=== PATIENT | male | born 1955 | race Caucasian/White ===

== ENCOUNTER 2017-11-26 19:22 | Emergency (ER) | payer BC ==
[2017-11-26 19:36] VITALS: RESP 18
[2017-11-26 20:56] LABS: Appearance,Urine Clear (Clear); Basophils % (A) 0 %; Bilirubin,Urine Negative (Negative); Blood,Urine Negative (Negative); Color,Urine Yellow; Eosinophils % (A) 0 %; Glucose,Urine (UA) Negative (Negative); HCT 54.2 % (39.0-53.0); HGB 18.7 gm/dL (13.0-17.5); Ketones,Urine Negative (Negative); Leukocyte Esterase,Urine Negative (Negative); Lymphocytes # (A) 1.3 k/uL (1.0-4.8); Lymphocytes % (A) 18 %; MCHC 34.4 g/dL (31.0-37.0); Mean Platelet Volume 7.4; Monocytes # (A) 0.3 k/uL (0-1.0); Monocytes % (A) 4 %; Neutrophils # (A) 5.8 k/uL (1.3-7.7); Neutrophils % (A) 76 %; Nitrite,Urine Negative (Negative); PH, Urine 5.5 (5.0-8.0); Platelet Count 188 k/uL (150-450); Protein,Urine Negative (Negative); RBC 6.02 m/uL (4.30-5.90); RDW 12.6 % (11.5-15.5); Specific Gravity,Urine 1.017 (1.001-1.035); Urobilinogen,Urine <2.0 mg/dL (<2.0); WBC 7.6 k/uL (3.8-10.6)
[2017-11-26 21:06] LABS: Anion Gap 9 mmol/L; Blood Urea Nitrogen 14 mg/dL (9-20); Calcium 9.4 mg/dL (8.4-10.2); Carbon Dioxide 25 mmol/L (22-30); Chloride 107 mmol/L (98-107); Glucose 90 mg/dL (74-99); Potassium 4.3 mmol/L (3.5-5.1); Sodium 141 mmol/L (137-145)
--- NOTE | 2017-11-26 21:47 | ED ---
General Adult HPI - General Source: patient, RN notes reviewed Mode of arrival: ambulatory Limitations: no limitations <Júnior Woodruff P - Last Filed: 11/26/17 21:53> <Thao Dye P - Last Filed: 11/28/17 05:00> - General Chief complaint: Anxiety Stated complaint: anxiety Time Seen by Provider: 11/26/17 19:48 - History of Present Illness Initial comments: 61-year-old male presents to the emergency department for a chief complaint of anxiety regarding kidney function. Patient states that a few days ago he "had it in his head that his kidney function may be messed up." Patient states he is not sure what initiated this thought. He states he has had anxiety in the past. He states he has not slept the past few days because he is concerned about his kidneys. He states he has been drinking a lot of water to help his kidney function. Patient denies any history of kidney failure or disease. He states his mother of kidney failure after she had cancer. He states that the only thing that will ease his anxiety is to have his kidney function tested here in the emergency department.Patient has no other complaints at this time including shortness of breath, chest pain, abdominal pain, nausea or vomiting, headache, or visual changes. (Júnior Woodruff) - Related Data Allergies Allergy/AdvReac Type Severity Reaction Status Date / Time No Known Allergies Allergy Verified 11/26/17 19:36 Review of Systems ROS Other: All systems not noted in ROS Statement are negative. <Júnior Woodruff - Last Filed: 11/26/17 21:53> ROS Other: All systems not noted in ROS Statement are negative. <Thao Dey P - Last Filed: 11/28/17 05:00> ROS Statement: Those systems with pertinent positive or pertinent negative responses have been documented in the HPI. Past Medical History Past Medical History: Hypertension History of Any Multi-Drug Resistant Organisms: None Reported Past Surgical History: Tonsillectomy Past Psychological History: Anxiety Smoking Status: Never smoker Past Alcohol Use History: Occasional Past Drug Use History: None Reported <Júnior Woodruff - Last Filed: 11/26/17 21:53> General Exam Limitations: no limitations General appearance: alert, in no apparent distress Head exam: Present: atraumatic, normocephalic, normal inspection Eye exam: Present: normal appearance. Absent: scleral icterus, conjunctival injection ENT exam: Present: normal exam, mucous membranes moist Neck exam: Present: normal inspection, full ROM. Absent: tenderness, meningismus, lymphadenopathy Respiratory exam: Present: normal lung sounds bilaterally. Absent: respiratory distress, wheezes, rales, rhonchi, stridor Cardiovascular Exam: Present: regular rate, normal rhythm, normal heart sounds. Absent: systolic murmur, diastolic murmur, rubs, gallop, clicks GI/Abdominal exam: Present: soft, normal bowel sounds. Absent: distended, tenderness, guarding, rebound, rigid Back exam: Absent: CVA tenderness (R), CVA tenderness (L) Neurological exam: Present: alert, oriented X3, CN II-XII intact Psychiatric exam: Present: normal affect, normal mood <Júnior Woodruff P - Last Filed: 11/26/17 21:53> Vital Signs 11/26/17 11/26/17 19:34 22:14 Temperature 97.6 F 98.1 F Pulse Rate 86 78 Respiratory 18 18 Rate Blood Pressure 156/86 143/86 O2 Sat by Pulse 99 92 L Oximetry Medical Decision Making - Lab Data Result diagrams: 11/26/17 20:46 11/26/17 20:46 <Júnior Woodruff P - Last Filed: 11/26/17 21:53> - Lab Data Result diagrams: 11/26/17 20:46 11/26/17 20:46 <Thao Dey P - Last Filed: 11/28/17 05:00> - Medical Decision Making 61-year-old male presents to the emergency department for a chief complaint of anxiety over kidney function. Patient does not have a history of kidney disease or kidney failure. However he states he got in his head out of no where that his kidneys were not working properly and wanted a blood test to make sure they were okay. BMP was ordered and was unremarkable. Discussed results with patient and discussed that his kidneys do appear to be functioning. Patient states his anxiety is relieved significantly. He is very thankful for the test today. He will follow up with primary care in 1-2 days. He will return to the emergency department if he has any additional concerns. ( Júnior Woodruff) I was available for consultation in the emergency department. The history and physical exam were done by the midlevel provider. I was consulted for this patient's care. I reviewed the case with the midlevel provider and based on their presentation of the patient, I agree with the assessment, medical decision making and plan of care as documented. (Thao Dey) - Lab Data Lab Results 11/26/17 11/26/17 11/26/17 Range/Units 20:46 20:46 20:46 WBC 7.6 (3.8-10.6) k/uL RBC 6.02 H (4.30-5.90) m/uL Hgb 18.7 H (13.0-17.5) gm/dL Hct 54.2 H (39.0-53.0) % MCV 90.0 (80.0-100.0) fL MCH 31.0 (25.0-35.0) pg MCHC 34.4 (31.0-37.0) g/dL RDW 12.6 (11.5-15.5) % Plt Count 188 (150-450) k/uL Neutrophils % 76 % Lymphocytes % 18 % Monocytes % 4 % Eosinophils % 0 % Basophils % 0 % Neutrophils # 5.8 (1.3-7.7) k/uL Lymphocytes # 1.3 (1.0-4.8) k/uL Monocytes # 0.3 (0-1.0) k/uL Eosinophils # 0.0 (0-0.7) k/uL Basophils # 0.0 (0-0.2) k/uL Sodium 141 (137-145) mmol/L Potassium 4.3 (3.5-5.1) mmol/L Chloride 107 (98-107) mmol/L Carbon Dioxide 25 (22-30) mmol/L Anion Gap 9 mmol/L BUN 14 (9-20) mg/dL Creatinine 0.81 (0.66-1.25) mg/dL Est GFR (CKD-EPI)AfAm >90 (>60 ml/min/1.73 sqM) Est GFR (CKD-EPI)NonAf >90 (>60 ml/min/1.73 sqM) Glucose 90 (74-99) mg/dL Calcium 9.4 (8.4-10.2) mg/dL Urine Color Yellow Urine Appearance Clear (Clear) Urine pH 5.5 (5.0-8.0) Ur Specific Carriere 1.017 (1.001-1.035) Urine Protein Negative (Negative) Urine Glucose (UA) Negative (Negative) Urine Ketones Negative (Negative) Urine Blood Negative (Negative) Urine Nitrite Negative (Negative) Urine Bilirubin Negative (Negative) Urine Urobilinogen <2.0 (<2.0) mg/dL Ur Leukocyte Esterase Negative (Negative) Disposition Is patient prescribed a controlled substance at d/c from ED?: No Time of Disposition: 21:47 <Júnior Woodruff P - Last Filed: 11/26/17 21:53> <Thao Dey P - Last Filed: 11/28/17 05:00> Clinical Impression: Normal exam Disposition: HOME SELF-CARE Condition: Good Instructions: Generalized Anxiety Disorder (ED) Additional Instructions: Please follow up with primary care in 1-2 days. Return to the emergency department if you have any worsening symptoms or additional concerns. Referrals: Jalil Miller MD [Primary Care Provider] - 1-2 days
[2017-11-26 22:15] VITALS: BP 143/86; PULSE 78; TEMP 98.1
== END 2017-11-26 22:17 | disposition home or self-care (01) ==
LOC: EC 19:22
DX: F41.9 Anxiety disorder, unspecified (principal)
CPT/HCPCS: 36415; 80048; 81003; 85025; 99283

== ENCOUNTER 2019-10-24 10:14 | Day surgery (SDC) | payer BC ==
[2019-10-20 11:28] VITALS: BMI 28.3
[~2019-10-24 10:14] MED LIST: LACTATED RINGERS 1,000 ML IV SCH; SODIUM CHLORIDE 0.9% 1,000 ML IV SCH
[2019-10-24] MEDS ORDERED: PROPOFOL 10 MG/ML 20 ML VIAL IV ONE (11:16)
[2019-10-24] MEDS ORDERED: LIDOCAINE 1% INJ 10MG/ML (20 ML MDV) ONE (11:16)
[2019-10-24 11:17] LABS: African American GFR (CKD) >90 (>60 ml/min/1.73 sqM); Anion Gap 7 mmol/L; Blood Urea Nitrogen 15 mg/dL (9-20); Carbon Dioxide 26 mmol/L (22-30); Chloride 106 mmol/L (98-107); Glucose 92 mg/dL (74-99); Non-African American GFR(CKD) >90 (>60 ml/min/1.73 sqM); Potassium 4.4 mmol/L (3.5-5.1); Sodium 139 mmol/L (137-145)
[2019-10-24] MEDS ORDERED: BENZOCAINE SPRAY 1 CAN TOPICAL ONE (11:23)
[2019-10-24] MEDS ORDERED: IV FLUID CONTINUATION 500 ML IV ONE (11:33)
[2019-10-24 11:45] VITALS: TEMP 97.8
[2019-10-24 12:24] VITALS: RESP 14
--- NOTE | 2019-10-24 13:10 | ECHOT ---
TRANSESOPHAGEAL ECHOCARDIOGRAM PERFORMING PHYSICIAN: Dr. Danny Olsen PROCEDURE PERFORMED: Transesophageal echocardiogram. INDICATIONS: Atypical atrial flutter. COMPLICATIONS: LEVEL OF SEDATION: PROCEDURE DESCRIPTION: After obtaining informed consent, transesophageal echocardiogram was performed in left lateral position using an Omniplane probe. Local and IV sedation were obtained by the jewel staker. The patient tolerated the procedure well without any obvious immediate complications. FINDINGS: 1. There is no intracardiac thrombus within the left atrial appendage, left atrium, right atrium, right ventricle or left ventricle. 2. Left ventricle has normal size and systolic function. 3. There is biatrial enlargement. 4. Mitral valve shows mild mitral regurgitation. 5. Aortic valve is free of stenosis or regurgitation. 6. Tricuspid valve shows mild tricuspid regurgitation. 7. Interatrial septum: There is no evidence of bjat-dm-fhywl shunt by color-flow Doppler or [id number] shunt by agitated saline contrast study. Aorta shows mild atherosclerotic changes. The ascending aorta at the sinuses of Valsalva measures 3.9 cm. CONCLUSION: No intracardiac thrombus. PLAN: Patient will undergo cardioversion. MMODL / IJN: [id number] /
[2019-10-24 13:11] VITALS: PULSE 60
--- NOTE | 2019-10-24 13:25 | PCN ---
PROCEDURE NOTE CARDIOVERSION: INDICATION: Atrial flutter. PROCEDURE NOTE: After obtaining informed consent and making sure that the patient is adequately anticoagulated with Eliquis and the REGAN has ruled out intracardiac thrombus, patient underwent electrical cardioversion. He received 200 joules synchronized DC current following which he converted to sinus rhythm. He will continue the Eliquis and will be followed up in my office in a week's time. MMADIN / JAIMEEN: [id number] /
[2019-10-24 13:47] VITALS: BP 112/58
--- NOTE | 2019-10-26 10:30 | CDI ---
Outpatient Documentation Clarification Form Date: 10/26/19 CDS/Back Winder Name: Isa Roy Phone: If any questions, call Lexis Reed Housing Court Judge at [phone] Patient Name: Marvin Carter Admit Date: 10/24/19 Discharge Date: 10/24/19 ATTENTION: The [facility] Coding Staff appreciate your assistance in clarifying documentation. Please respond to the clarification below the line at the bottom and electronically sign. The [facility] Coding staff will review the response and follow-up if needed. Please note: Queries are made part of the Legal Health Record. If you have any questions, please contact the Housing Court Judge. Dear Dr. Olsen, Please provide clarification as to the procedure(s) performed. Charges indicate that all three elements of REGAN were performed. The procedure note does not document all three elements of the REGAN. There is no documentation on the for the Doppler echocard pulse waive w/spectral display or the dopppler echocard color flow velocity mapping. Please clarify if all elements of the REGAN were performed. Thank you for your kind consideration. MTDD
== END 2019-10-24 14:00 | disposition home or self-care (01) ==
LOC: CATHCVL 10:14
PROVIDERS: ATTEND Internal Medicine Cardiovascular Disease
DX: I48.4 Atypical atrial flutter (principal); I10 Essential (primary) hypertension; Z90.49 Acquired absence of other specified parts of digestive tract; Z98.890 Other specified postprocedural states; Z79.01 Long term (current) use of anticoagulants; Z79.899 Other long term (current) drug therapy
CPT/HCPCS: 93312; 93320; 93325; 92960; 80048; J2001; J2704; 93005

== ENCOUNTER → 2022-01-13 | Outpatient (CLI) | payer SELFPAY ==
--- NOTE | 2022-01-13 15:04 | US ---
EXAMINATION TYPE: US kidneys/renal and bladder DATE OF EXAM: 01/13/2022 COMPARISON: NONE CLINICAL HISTORY: R30.0 DYSURIA, R35.0 FREQUENCY OF MICTURITION. Pt states urinary frequency EXAM MEASUREMENTS: Right Kidney: 12.2 x 5.6 x 5.8 cm Left Kidney: 11.2 x 6.1 x 5.5 cm Right Kidney: Appeared wnl Left Kidney: Appeared wnl Bladder: wnl Bilateral Jets seen: Yes Normal Post Void Residual: No, 52 ml There is no evidence for hydronephrosis at this point in time. No nephrolithiasis is seen. No bailey s are identified. The urinary bladder is anechoic. Bilateral ureteral jets are seen. IMPRESSION: No acute process.
== END | disposition home or self-care (01) ==
LOC: RADUSMAIN 14:00
PROVIDERS: ATTEND Family Medicine
DX: R30.0 Dysuria (principal); R35.0 Frequency of micturition
CPT/HCPCS: 76770

== ENCOUNTER 2024-07-11 16:44 | Observation (INO) | payer MEDICARE, OTHER ==
--- NOTE | 2024-07-11 17:21 | ED ---
Recheck HPI - General Source: patient, RN notes reviewed Mode of arrival: ambulatory Limitations: no limitations - History of Present Illness MD Complaint: abnormal lab Onset/Timin -: days(s) Context: called for abnormal lab result Associated Symptoms: other (Improving nasal congestion, productive cough) <Tom Lowe - Last Filed: 07/11/24 23:42> <Edwardo Dempsey - Last Filed: 07/12/24 00:09> - General Chief Complaint: Recheck/Abnormal Lab/Rx Stated Complaint: Abnormal Labs Time Seen by Provider: 07/11/24 17:02 - History of Present Illness Initial Comments: This is a 68-year-old male with history of A-fib and hypertension presenting with abnormal lab work performed yesterday. Patient received his call from his primary care provider informing him of a platelet count of 9, advising him to go to ER. Patient denies history of low platelet count or any active bleeding noted from gums or in stool. Patient endorses use of Eliquis, metoprolol and Dupixent for bullous pemphigoid. Patient states he was getting treated for productive cough and congestion for the past 2 and half weeks, receiving an antibiotic and Medrol Dosepak, noting improvement in his symptoms. Denies fever, chills, dizziness, chest pain, dyspnea, hemoptysis, abdominal pain, N/V/D. (Tom Lowe) - Related Data Home Medications Medication Instructions Recorded Confirmed Metoprolol Succinate [Toprol XL] 50 mg PO DAILY 10/20/19 07/11/24 Amoxic-Pot Clav 875-125Mg 1 tab PO Q12HR 07/11/24 07/11/24 [Augmentin 875-125] Apixaban [Eliquis] 5 mg PO BID 07/11/24 07/11/24 Benzonatate [Tessalon Perles] 100 mg PO TID PRN 07/11/24 07/11/24 Cholecalciferol [Vitamin D3 (125 250 mcg PO DAILY 07/11/24 07/11/24 Mcg = 5000 Iu)] Dupilumab [Dupixent Syringe] 300 mg SQ Q14D 07/11/24 07/11/24 Tamsulosin [Flomax] 0.4 mg PO HS 07/11/24 07/11/24 amLODIPine [Norvasc] 10 mg PO DAILY 07/11/24 07/11/24 methylPREDNISolone [Medrol Dose See Taper PO DIRECTED 07/11/24 07/11/24 Pack] Allergies Allergy/AdvReac Type Severity Reaction Status Date / Time No Known Allergies Allergy Verified 07/11/24 18:10 Review of Systems ROS Other: All systems not noted in ROS Statement are negative. <Tom Lowe - Last Filed: 07/11/24 23:42> ROS Other: All systems not noted in ROS Statement are negative. <Edwardo Dempsey - Last Filed: 07/12/24 00:09> ROS Statement: Those systems with pertinent positive or pertinent negative responses have been documented in the HPI. Past Medical History Past Medical History: Atrial Fibrillation, Hypertension History of Any Multi-Drug Resistant Organisms: None Reported Past Surgical History: Cholecystectomy, Tonsillectomy Additional Past Surgical History / Comment(s): COLONOSCOPY Past Anesthesia/Blood Transfusion Reactions: No Reported Reaction Past Psychological History: Anxiety Smoking Status: Never smoker - Past Family History Mother Family Medical History: Cancer <Tom Lowe - Last Filed: 07/11/24 23:42> General Exam Limitations: no limitations General appearance: alert, in no apparent distress Head exam: Present: atraumatic, normocephalic, normal inspection Eye exam: Present: normal appearance, PERRL, EOMI. Absent: scleral icterus, conjunctival injection, periorbital swelling ENT exam: Present: normal exam, normal oropharynx (No active bleeding noted), mucous membranes moist Neck exam: Present: normal inspection. Absent: tenderness, meningismus, lymphadenopathy Respiratory exam: Present: normal lung sounds bilaterally. Absent: respiratory distress, wheezes, rales, rhonchi, stridor, accessory muscle use, decreased breath sounds, prolonged expiratory Cardiovascular Exam: Present: regular rate, irregular rhythm, normal heart sounds. Absent: systolic murmur, diastolic murmur, rubs, gallop, clicks GI/Abdominal exam: Present: soft, normal bowel sounds. Absent: distended, tend erness, guarding, rebound, rigid Extremities exam: Present: normal inspection, full ROM, normal capillary refill, other (Bilateral upper and lower extremity distal pulses +2 and irregular). Absent: tenderness, pedal edema, joint swelling, calf tenderness Back exam: Present: normal inspection Neurological exam: Present: alert, oriented X3, CN II-XII intact Psychiatric exam: Present: normal affect, normal mood Skin exam: Present: warm, dry, intact, normal color. Absent: rash <Tom Lowe - Last Filed: 07/11/24 23:42> Course <Edwardo Dempsey - Last Filed: 07/12/24 00:09> Vital Signs 07/11/24 07/11/24 07/11/24 16:46 18:49 21:24 Temperature 98.5 F Pulse Rate 86 72 77 Respiratory 16 18 18 Rate Blood Pressure 144/82 138/76 139/75 O2 Sat by Pulse 97 98 97 Oximetry - Reevaluation(s) Reevaluation #1: 07/12/24 00:09 I was asked to enter a placement order for this patient, no other interaction. (Edwardo Dempsey) Medical Decision Making - Lab Data Result diagrams: 07/11/24 17:38 07/11/24 17:38 <Tom Lowe - Last Filed: 07/11/24 23:42> - Lab Data Result diagrams: 07/11/24 17:38 07/11/24 17:38 <Edwardo Dempsey - Last Filed: 07/12/24 00:09> - Medical Decision Making Was pt. sent in by a medical professional or institution (ANDREY Viveros, QUAL RESEARCH MANAGER, urgent care, hospital, or skilled nursing...) When possible be specific @ -PCP, Dr. Miller Did you speak to anyone other than the patient for history (EMS, parent, family, police, friend...)? What history was obtained from this source @ -No Did you review nursing and triage notes (agree or disagree)? Why? @ -I reviewed and agree with nursing and triage notes Were old charts reviewed (outside hosp., previous admission, EMS record, old EKG, old radiological studies, urgent care reports/EKG's, skilled nursing records)? Report findings @ -No old charts were reviewed Differential Diagnosis (chest pain, altered mental status, abdominal pain women, abdominal pain men, vaginal bleeding, weakness, fever, dyspnea, syncope, headache, dizziness, GI bleed, back pain, seizure, CVA, palpatations, mental health, musculoskeletal)? @ -Thrombocytopenia, thrombocytosis, leukemia, aplastic anemia, this is not an exhaustive list EKG interpreted by me (3pts min.). @ -Not done X-rays interpreted by me (1pt min.). @ -None done CT interpreted by me (1pt min.). @ -None done U/S interpreted by me (1pt. min.). @ -None done What testing was considered but not performed or refused? (CT, X-rays, U/S, labs)? Why? @ -None What meds were considered but not given or refused? Why? @ -None Did you discuss the management of the patient with other professionals ( professionals i.e. Dr., PA, QUAL RESEARCH MANAGER, lab, RT, psych nurse, delinquency prevention social worker, tool filer, teacher, hydrographical technical officer, vocational case manager)? Give summary @ -Spoke to Dr. Miller for obs admission who advised consult with Dr. Connelly. Was smoking cessation discussed for >3mins.? @ -No Was critical care preformed (if so, how long)? @ -No Were there social determinants of health that impacted care today? How? (Homelessness, low income, unemployed, alcoholism, drug addiction, transportation, low edu. Level, literacy, decrease access to med. care, shelter, rehab)? @ -No Was there de-escalation of care discussed even if they declined (Discuss DNR or withdrawal of care, Hospice)? DNR status @ -No What co-morbidities impacted this encounter? (DM, HTN, Smoking, COPD, CAD, Cancer, CVA, ARF, Chemo, Hep., AIDS, mental health diagnosis, sleep apnea, morbid obesity)? @ -Eliquis use Was patient admitted / discharged? Hospital course, mention meds given and route, prescriptions, significant lab abnormalities, going to OR and other pertinent info. @ -Lab work shows platelet count 14 with immature platelet fraction 20% and immature granulocytes. Leukocytes 10.29 neutrophils 9.57. Hyperglycemia 140. Spoke to Dr. Miller for obs admission who advised consult with Dr. Connelly. Discussed patient with Dr. Hollis. Undiagnosed new problem with uncertain prognosis? @ -Thrombocytopenia Drug Therapy requiring intensive monitoring for toxicity (Heparin, Nitro, Insulin, Cardizem)? @ -No Were any procedures done? @ -No Diagnosis/symptom? @ -Thrombocytopenia Acute, or Chronic, or Acute on Chronic? @ -Acute Uncomplicated (without systemic symptoms) or Complicated (systemic symptoms)? @ -Uncomplicated Side effects of treatment? @ -No Exacerbation, Progression, or Severe Exacerbation? @ -No Poses a threat to life or bodily function? How? (Chest pain, USA, MD, pneumonia, PE, COPD, DKA, ARF, appy, cholecystitis, CVA, Diverticulitis, Homicidal, Suicidal, threat to staff... and all critical care pts) @ -Thrombocytopenia, potential for exsanguination (Tom Lowe) - Lab Data Lab Results 07/11/24 07/11/24 07/11/24 Range/Units 17:38 17:38 17:38 WBC 10.29 H (4.50-10.00) 10*3/uL RBC 5.47 (4.40-5.60) 10*6/uL Hgb 17.4 H (13.0-17.0) g/dL Hct 47.7 (39.6-50.0) % MCV 87.2 (80.0-97.0) fL MCH 31.8 (27.0-32.0) pg MCHC 36.5 (32.0-37.0) g/dL Plt Count 14 L* (140-440) 10*3/uL MPV 12.1 (9.5-12.2) fL Immature Gran % (Auto) 1.8 % Neutrophils % 93.0 % Lymphocytes % 3.6 % Monocytes % 1.4 % Eosinophils % 0.0 % Basophils % 0.2 % Immature Gran # 0.19 H (0.00-0.04) 10*3/uL Neutrophils # 9.57 H (1.80-7.70) 10*3/uL Lymphocytes # 0.37 L (0.90-5.00) 10*3/uL Monocytes # 0.14 L (0.20-1.00) 10*3/uL Eosinophils # 0.00 L (0.04-0.35) 10*3/uL Basophils # 0.02 (0.00-0.10) 10*3/uL Immature Plt Fraction 20.0 H (1.1-6.1) % PT 11.5 (10.0-12.5) sec INR 1.0 (<1.2) APTT 22.9 (22.0-30.0) sec Sodium 137 (137-145) mmol/L Potassium 4.3 (3.5-5.1) mmol/L Chloride 103 (98-107) mmol/L Carbon Dioxide 26 (22-30) mmol/L Anion Gap 8 mmol/L BUN 29 H (9-20) mg/dL Creatinine 1.20 (0.66-1.25) mg/dL Est GFR (CKD-EPI)AfAm 72 (>60 ml/min/1.73 sqM) Est GFR (CKD-EPI)NonAf 62 (>60 ml/min/1.73 sqM) Glucose 140 H (74-99) mg/dL Calcium 9.7 (8.4-10.2) mg/dL Total Bilirubin 1.2 (0.2-1.3) mg/dL AST 24 (17-59) U/L ALT 30 (4-49) U/L Alkaline Phosphatase 117 (38-126) U/L Total Protein 6.9 (6.3-8.2) g/dL Albumin 4.3 (3.5-5.0) g/dL Disposition Is patient prescribed a controlled substance at d/c from ED?: No Time of Disposition: 19:03 Decision Date: 07/11/24 Decision Time: 19:03 <Tom Lowe - Last Filed: 07/11/24 23:42> <Edwardo Dempsey - Last Filed: 07/12/24 00:09> Clinical Impression: Thrombocytopenia Disposition: ADMITTED IP TO THIS [facility] Condition: Good Referrals: Jalil Miller MD [Primary Care Provider] - 1-2 days
[2024-07-11 17:47] LABS: Basophils # (A) 0.02 10*3/uL (0.00-0.10); Basophils % (A) 0.2 %; HCT 47.7 % (39.6-50.0); HGB 17.4 g/dL (13.0-17.0); Lymphocytes # (A) 0.37 10*3/uL (0.90-5.00); Lymphocytes % (A) 3.6 %; MCH 31.8 pg (27.0-32.0); MCHC 36.5 g/dL (32.0-37.0); MCV 87.2 fL (80.0-97.0); Mean Platelet Volume 12.1 fL (9.5-12.2); Monocytes # (A) 0.14 10*3/uL (0.20-1.00); Monocytes % (A) 1.4 %; Neutrophils # (A) 9.57 10*3/uL (1.80-7.70); RBC 5.47 10*6/uL (4.40-5.60); RDW 12.1 % (11.5-14.5); WBC 10.29 10*3/uL (4.50-10.00)
[2024-07-11 18:02] LABS: ALT 30 U/L (4-49); AST 24 U/L (17-59); African American GFR (CKD) 72 (>60 ml/min/1.73 sqM); Albumin 4.3 g/dL (3.5-5.0); Alkaline Phosphatase 117 U/L (38-126); Anion Gap 8 mmol/L; Blood Urea Nitrogen 29 mg/dL (9-20); Calcium 9.7 mg/dL (8.4-10.2); Carbon Dioxide 26 mmol/L (22-30); Chloride 103 mmol/L (98-107); Glucose 140 mg/dL (74-99); Non-African American GFR(CKD) 62 (>60 ml/min/1.73 sqM); Platelet Count 14 10*3/uL (140-440); Potassium 4.3 mmol/L (3.5-5.1); Sodium 137 mmol/L (137-145); Total Bilirubin 1.2 mg/dL (0.2-1.3); Total Protein 6.9 g/dL (6.3-8.2)
[2024-07-11 18:04] LABS: Partial Thromboplastin Time 22.9 sec (22.0-30.0); Prothrombin Time 11.5 sec (10.0-12.5)
[2024-07-11] MEDS ORDERED: ONDANSETRON 4 MG/2 ML VIAL IVP PRN (18:59)
[2024-07-11] MEDS ORDERED: NALOXONE 0.4 MG/ML 1 ML VIAL IV PRN (18:59)
[2024-07-11] MEDS ORDERED: ACETAMINOPHEN TAB 325 MG TAB PO PRN (18:59)
[2024-07-11] MEDS: NON FORMULARY DRUG (Dupilumab [Dupixent Syringe] 300 MG/2 ML Each) SQ SCH (20:08)
[2024-07-11] MEDS: TAMSULOSIN 0.4 MG CAP.ER.24H PO SCH (20:09)
[2024-07-12] MEDS: amLODIPine 10 MG TAB PO SCH (08:59)
[2024-07-12] MEDS: METOPROLOL SUCCINATE (ER) 50 MG TAB.ER.24H PO SCH (08:59)
[2024-07-12] MEDS: methylPREDNISolone SOD SUCCI 125 MG/2 ML VIAL IV SCH (11:38)
[2024-07-12] MEDS: PANTOPRAZOLE 40 MG TABLET PO SCH (11:39)
[2024-07-12 12:38] LABS: Influenza A Not Detected (Not Detectd); Influenza B Not Detected (Not Detectd); RSV Not Detected (Not Detectd)
--- NOTE | 2024-07-12 15:06 | US ---
EXAMINATION TYPE: US abdomen complete DATE OF EXAM: 07/12/2024 COMPARISON: Renal US 2021 CLINICAL INDICATION: Male, 68 years old with history of thrombocytopenia, mono; Thrombocytopenia, mon o per order. Hx cholecystectomy TECHNIQUE: Grayscale and color Doppler imaging of the abdomen was performed. FINDINGS: EXAM MEASUREMENTS: Liver Length: 16.4 cm. Normal less than 15.5 cm. Gallbladder Wall: Surgically absent CBD: 0.50 cm, color Doppler imaging was utilized to isolate the common bile duct for measurement. Spleen: 14.6 cm. Normal less than 12.5 cm. Right Kidney: 12.9 x 6.5 x 5.1 cm Left Kidney: 11.6 x 6.7 x 5.5 cm WEBLOGIC DEVELOPER NOTES: Exam is limited due to gas Pancreas: Very limited visibility Liver: Appears very coarse/heterogeneous Gallbladder: Surgically absent Evidence for sonographic Cartagena's sign: No CBD: wnl Spleen: Enlarged Right Kidney: Enlarged. *Hydronephrosis seen. Left Kidney: *Anechoic area, small cyst, seen medially measuring 1.5 cm in greatest dimension. Upper IVC: wnl Abd Aorta: *Proximal and mid segment, iliac arteries were obscured. Distal aorta appears wnl. IMPRESSION: 1. Right hydronephrosis. 2. Splenomegaly. 3. Mild hepatomegaly [facility], , 07/12/2024 3:04 PM
[2024-07-12] MEDS: APIXABAN 5 MG TAB PO SCH (15:27)
[2024-07-12 15:37] LABS: Rheumatoid Factor, Qnt <15 IU/mL (0-15)
[2024-07-12 15:43] LABS: Protein, Total 5.7 g/dL (6.2-8.2)
--- NOTE | 2024-07-12 22:54 | P.CONS ---
History of Present Illness - Reason for Consult Consult date: 07/12/24 thrombocytopenia Requesting physician: Tom Lowe - Chief Complaint Abnormal lab - History of Present Illness Mr. Carter is a 68-year-old man we have been asked to see because of acute thrombocytopenia. Patient reports he has not been feeling well for a few weeks, he was not getting better so he went to see his PCP and he was given steroids and antibiotics that he started yesterday and the day before, respectively. He was contacted about laboratory workup that was done and was told he needed to be seen in the emergency room because his platelet counts were 9000. Patient has a history of atrial fibrillation and is on anticoagulation with Eliquis for the same. Patient reports his last dose was taken Wednesday night. Patient denied any bleeding or unusual bruising, petechiae, lymphadenopathy, new or unusual pain, unintentional weight loss, headaches or dizziness, no history of EtOH, lifetime non-smoker, no history of sleep apnea or use of diuretics. Patient is treated for skin disorder through dermatology, is treated with Dupixent. There is no family history of blood diseases that he is aware of. He has never had low platelets before. Platelets 14,000 on admission, Eliquis has been held Review of Systems 14 point review of systems is negative except as stated in HPI Past Medical History Past Medical History: Atrial Fibrillation, Hypertension History of Any Multi-Drug Resistant Organisms: None Reported Past Surgical History: Adenoidectomy, Cholecystectomy, Tonsillectomy Additional Past Surgical History / Comment(s): COLONOSCOPY Past Anesthesia/Blood Transfusion Reactions: No Reported Reaction Smoking Status: Never smoker Past Alcohol Use History: Occasional Past Drug Use History: None Reported - Past Family History Mother Family Medical History: Cancer Medications and Allergies Home Medications Medication Instructions Recorded Confirmed Type Metoprolol Succinate [Toprol XL] 50 mg PO DAILY 10/20/19 07/11/24 History Amoxic-Pot Clav 875-125Mg 1 tab PO Q12HR 07/11/24 07/11/24 History [Augmentin 875-125] Apixaban [Eliquis] 5 mg PO BID 07/11/24 07/11/24 History Benzonatate [Tessalon Perles] 100 mg PO TID PRN 07/11/24 07/11/24 History Cholecalciferol [Vitamin D3 (125 250 mcg PO DAILY 07/11/24 07/11/24 History Mcg = 5000 Iu)] Dupilumab [Dupixent Syringe] 300 mg SQ Q14D 07/11/24 07/11/24 History Tamsulosin [Flomax] 0.4 mg PO HS 07/11/24 07/11/24 History amLODIPine [Norvasc] 10 mg PO DAILY 07/11/24 07/11/24 History methylPREDNISolone [Medrol Dose See Taper PO DIRECTED 07/11/24 07/11/24 History Pack] Allergies Allergy/AdvReac Type Severity Reaction Status Date / Time No Known Allergies Allergy Verified 07/11/24 18:10 Physical Exam Vitals: Vital Signs Temp Pulse Pulse Pulse Resp BP BP 07/12/24 08:05 07/12/24 07:00 97.5 F L 62 16 119/69 07/12/24 02:00 97.8 F 74 18 07/12/24 01:33 16 07/12/24 00:39 98.4 F 72 18 124/64 07/11/24 21:24 77 18 139/75 07/11/24 18:49 72 18 138/76 07/11/24 16:46 98.5 F 86 16 144/82 BP Pulse Ox 07/12/24 08:05 93 L 07/12/24 07:00 96 07/12/24 02:00 161/76 95 07/12/24 01:33 07/12/24 00:39 99 07/11/24 21:24 97 07/11/24 18:49 98 07/11/24 16:46 97 Intake and Output 07/11/24 07/12/24 07/12/24 22:59 06:59 14:59 Other: # Voids 2 Weight 111.13 kg 111.13 kg - Constitutional General appearance: average body habitus, cooperative, no acute distress - EENT Eyes: anicteric sclerae, EOMI ENT: hearing grossly normal, normal oropharynx - Neck Neck: no lymphadenopathy - Respiratory Respiratory: bilateral: CTA - Cardiovascular Rhythm: irregularly irregular Heart sounds: normal: S1, S2 Abnormal Heart Sounds: no systolic murmur, no diastolic murmur, no rub, no S3 Gallop, no S4 Gallop, no click, no other leg Peripheral Edema: bilateral: None - Gastrointestinal General gastrointestinal: no absent bowel sounds, no decreased bowel sounds, no distended, no hepatomegaly, no hyperactive bowel sounds, normal bowel sounds, no organomegaly, no rigid, no scaphoid, soft, no splenomegaly, no tenderness, no umbilical hernia, no ventral hernia - Integumentary Integumentary: normal - Neurologic Neurologic: CNII-XII intact - Musculoskeletal Musculoskeletal: strength equal bilaterally - Psychiatric Psychiatric: A&O x's 3, appropriate affect, intact judgment & insight Results CBC & Chem 7: 07/11/24 17:38 07/11/24 17:38 Labs: Abnormal Lab Results - Last 24 Hours (Table) 07/11/24 07/11/24 Range/Units 17:38 17:38 WBC 10.29 H (4.50-10.00) 10*3/uL Hgb 17.4 H (13.0-17.0) g/dL Plt Count 14 L* (140-440) 10*3/uL Immature Gran # 0.19 H (0.00-0.04) 10*3/uL Neutrophils # 9.57 H (1.80-7.70) 10*3/uL Lymphocytes # 0.37 L (0.90-5.00) 10*3/uL Monocytes # 0.14 L (0.20-1.00) 10*3/uL Eosinophils # 0.00 L (0.04-0.35) 10*3/uL Immature Plt Fraction 20.0 H (1.1-6.1) % BUN 29 H (9-20) mg/dL Glucose 140 H (74-99) mg/dL Assessment and Plan (1) Thrombocytopenia Current Visit: Yes Status: Acute Priority: High Code(s): D69.6 - THROMBOCYTOPENIA, UNSPECIFIED SNOMED Code(s): 331196695 Plan: Thrombocytopenia -Clinical picture most consistent with ITP -IV steroids started -PPI started -Ultrasound of the abdomen ordered -Plt 14,000 today, no transfusion. CBC daily -pt last dose of eliquis was Mon, nothing acutely at this time. Cont to hold until plt>50,000. No asa, NSAIDs, anticoagulation -Workup ordered including inflammatory markers, paraproteinemia workup, COVID and influenza also ordered. Doctor attests: I performed a history and physical examination of this patient, developed impression and plan of care. Discussed with dictator. I agree with dictators note, documented as a scribe.
--- NOTE | 2024-07-13 02:17 | HP ---
HISTORY AND PHYSICAL CHIEF COMPLAINT: Thrombocytopenia. HISTORY OF PRESENT ILLNESS: First known admission for this 68-year-old man who has been in good health. He was recently in the office for his annual well visit. He stated he was feeling fairly well but a little bit tired. All of his studies came back except the fact that on his CBC, he had no platelets. Hemoglobin and white count were normal. He has had no evidence of any bleeding from the urine, GI tract, nose, or teeth or ecchymoses. He has had no headaches. There was a concern that it may be a lab error, and he was asked to go to the hospital, and in the emergency room, these studies were duplicated, and he was admitted. We subsequently received the report that he had tested positive for mono, and it was wondered if this was the cause, but it was felt unlikely. He has had no petechiae. REVIEW OF SYSTEMS: He has had no fever, chills, chest pain, abdominal pain, etc. Past medical history, family history, and personal and social histories are all otherwise unremarkable or noncontributory. He has had a problem with calcium channel blockers in the past causing edema. He had good control of his blood pressure, and the decision was recently made to try him back on a dose of amlodipine. He is also on Eliquis for atrial fibrillation, and he takes Toprol-XL 50 mg once a day, tamsulosin 0.4 mg at night, and vitamin D3 5000 units a day. He does not smoke or drink. PHYSICAL EXAMINATION: VITAL SIGNS: Blood pressure 132/74 with a pulse of 71, respirations 15, and he is afebrile. GENERAL: Appeared to be well developed, well nourished, in no acute distress. SKIN: Color is normal. There are no ecchymoses. Skin was dry. There are no petechiae. HEAD, EARS, EYES, NOSE, MOUTH, AND THROAT: Normal. NECK: Veins are not distended. Thyroid is not enlarged. CHEST: Clear. CARDIAC: Normal. ABDOMEN: Soft, nontender. Liver and spleen are not palpable. EXTREMITIES: Normal. NEUROLOGIC: He is intact. DIAGNOSES: He is admitted to the hospital with diagnoses of: 1. Thrombocytopenia. 2. History of hypertension. 3. History of atrial fibrillation. 4. BPH. PLAN: 1. Bedrest. 2. IV fluids. 3. Repeat laboratory studies. 4. Referred to Hematology. MMODL / IJN: [id number] /
--- NOTE | 2024-07-13 04:21 | PN ---
PROGRESS NOTE CHIEF COMPLAINT: Thrombocytopenia. HISTORY OF PRESENT ILLNESS: This gentleman is doing well and feels fine. Workup will start today. He will be seen by Hematology. PHYSICAL EXAMINATION: VITAL SIGNS: Normal. CHEST: Clear. CARDIAC: Normal. ABDOMEN: Soft and nontender. IMPRESSION: Thrombocytopenia. PLAN: Await recommendations from Hematology. MMODL / IJN: [id number] /
[2024-07-13 09:21] LABS: HCT 47.5 % (39.6-50.0); HGB 16.6 g/dL (13.0-17.0); Immature Platelet Fraction 16.3 % (1.1-6.1); MCH 31.1 pg (27.0-32.0); MCHC 34.9 g/dL (32.0-37.0); MCV 89.1 FL (80.0-97.0); Mean Platelet Volume 12.2 FL (9.5-12.2); NRBC Per 100 WBC 0 X 10*3/uL (0.00-0.01); Platelet Count 35 X 10*3/uL (140-440); RBC 5.33 X 10*6/uL (4.40-5.60); RDW 12.2 % (11.5-14.5); WBC 11.76 X 10*3/uL (4.50-10.00)
[2024-07-13 10:59] LABS: Free Lambda Lt Chain Qnt, Seru 1.05 mg/dL (0.57-2.63)
--- NOTE | 2024-07-13 11:20 | XR ---
EXAMINATION TYPE: XR chest 1V portable DATE OF EXAM: 07/13/2024 10:57 AM COMPARISON: None. CLINICAL INDICATION: Male, 68 years old with history of COUGH, TECHNIQUE: XR chest 1V portable view(s) obtained. FINDINGS: The heart size is normal. The pulmonary vasculature is normal. The lungs are clear. IMPRESSION: 1. No acute pulmonary process. [facility], , 07/13/2024 11:17 AM
[2024-07-13 14:45] VITALS: TEMP 97.9
--- NOTE | 2024-07-13 14:45 | P.PN ---
Subjective Progress Note Date: 07/13/24 Principal diagnosis: thrombocytopenia In f/u pt denies fever, bleeding, N,V, hematuria, no other acute c/o, he does have a nagging cough Objective - Vital Signs Vital signs: Vital Signs Temp 97.3 F L 07/13/24 13:16 Pulse 77 07/13/24 13:16 Resp 17 07/13/24 13:16 BP 145/80 07/13/24 13:16 Pulse Ox 95 07/13/24 13:16 FiO2 Intake & Output 07/12/24 07/13/24 07/13/24 18:59 06:59 18:59 Intake Total 590 Balance 590 Intake: Oral 590 Other: # Voids 2 2 3 - Constitutional General appearance: Present: average body habitus, cooperative, no acute distress - EENT Eyes: Present: anicteric sclerae, EOMI ENT: Present: hearing grossly normal, normal oropharynx - Respiratory Respiratory: bilateral: CTA - Cardiovascular Rhythm: regular Heart sounds: normal: S1, S2 - Peripheral edema leg Peripheral Edema: bilateral: None - Gastrointestinal General gastrointestinal: Present: normal bowel sounds, soft - Integumentary Integumentary: Present: normal - Neurologic Neurologic: Present: CNII-XII intact - Musculoskeletal Musculoskeletal: Present: strength equal bilaterally - Psychiatric Psychiatric: Present: A&O x's 3, appropriate affect, intact judgment & insight - Labs CBC & Chem 7: 07/13/24 03:56 07/11/24 17:38 Labs: Abnormal Lab Results - Last 24 Hours (Table) 07/12/24 07/13/24 Range/Units 11:41 03:56 WBC 11.76 H (4.50-10.00) X 10*3/uL Plt Count 35 A* (140-440) X 10*3/uL Immature Plt Fraction 16.3 H (1.1-6.1) % Total Protein (PEP) 5.7 L (6.2-8.2) g/dL Free [place] LC, Quant 3.20 H (0.33-1.94) mg/dL - Imaging and Cardiology Chest x-ray: report reviewed Assessment and Plan (1) Thrombocytopenia Current Visit: Yes Status: Acute Priority: High Code(s): D69.6 - THROMBOCYTOPENIA, UNSPECIFIED SNOMED Code(s): 402984709 Plan: Thrombocytopenia -Clinical picture most consistent with ITP -IV steroids started, pt plt today are up to 35,000 -PPI started -Ultrasound of the abdomen-mild hepatosplenomegaly. Reactive to recent viral infection? Repeat US in 6-8 weeks -Plt 35,000 today, no transfusion. -Eliquis given last night and this AM. 1 unit SDP given for plt less than 50,000. Cont to hold eliquis until plt>50,000. No asa, NSAIDs, anticoagulation. This was reviewed with pt and he verbalized understanding -Workup ordered including inflammatory markers, paraproteinemia workup. Small KLC, normal ratio, other results still pending. COVID and influenza neg. -Weekly plt monitoring at Hematology office. Appt date and time in DC plan Cough -CXR was neg for acute process -treat symptomatically Pt is ok from a Hematology standpoint to be discharged once cleared by Attending and Consulting Physicians and he has received platelet transfusion
[2024-07-13 15:26] VITALS: PULSE 77
[2024-07-13 16:51] VITALS: BP 128/72; RESP 18
--- NOTE | 2024-07-13 21:36 | DS ---
DISCHARGE SUMMARY CHIEF COMPLAINT: Thrombocytopenia. HISTORY OF PRESENT ILLNESS AND PHYSICAL EXAM: Details of this man's history and physical can be found in the initial workup. LABORATORY STUDIES: While he was in the hospital, he had laboratory studies, details of which can be found in the laboratory section of his chart. COURSE IN THE HOSPITAL: After admission, he was placed on bedrest, started on intravenous fluids and seen by Hematology. He was placed on steroids. They felt that he could be discharged as his platelet count was rising and he will go home on his usual activity, diet, medications without the Eliquis. He will follow up with us and with Hematology. FINAL DIAGNOSES: 1. Thrombocytopenia, etiology unknown. 2. Hypertension. OPERATIONS: None. CONSULTATIONS: Oncology. MMODGreg / RAVEN: [id number] /
[2024-07-17 12:17] LABS: Gamma Globulin 0.76 g/dL (0.70-1.50)
== END 2024-07-13 18:00 | disposition home or self-care (01) ==
LOC: EC 16:44 → 6NMEDSUR 19:02
PROVIDERS: ADMIT Family Medicine; ATTEND Family Medicine
DX: D69.6 Thrombocytopenia, unspecified (principal); I10 Essential (primary) hypertension; I48.91 Unspecified atrial fibrillation; F41.9 Anxiety disorder, unspecified; N40.0 Benign prostatic hyperplasia without lower urinary tract symptoms; Z11.52 Encounter for screening for COVID-19; Z79.01 Long term (current) use of anticoagulants; Z79.899 Other long term (current) drug therapy
CPT/HCPCS: 96376 ×2; 36430; 96374; 99284; 36415; 94760; 86900; 86901; 82747; 80053; 82607; 85025; 85027; 85610; 85730; 86850; 86308; 86431; 84165; 86038; 86334; 83883; 87636; 71045; 76700; G0378 ×3; P9073; J2919 ×2

== ENCOUNTER 2024-08-14 12:50 | Inpatient (IN) | payer MEDICARE, OTHER ==
[2024-08-14] MEDS: SODIUM CHLORIDE 0.9% 500 ML 500 ML IV STA (14:28)
[2024-08-14] MEDS: DILTIAZEM 125 MG in DEXTROSE 5% IN WATER 100 ML IV SCH (14:29)
--- NOTE | 2024-08-14 14:32 | ED ---
General Adult HPI - General Chief complaint: Arrhythmia/Palpitations Stated complaint: Irreg heart rate,SOB Time Seen by Provider: 08/14/24 13:00 Source: patient, RN notes reviewed, old records reviewed Mode of arrival: ambulatory Limitations: no limitations - History of Present Illness Initial comments: This is a 68-year-old male who presents to the emergency department with a past medical history significant for atrial for about 5 years ago. Patient states he is never had an episode since. Patient states he been feeling some palpitations and some shortness of breath recently so he went to see his primary medical care doctor and he told him he had A-fib and he needed to come to the emergency department. Patient [place] any recent fever chills or cough. Patient states he does have the sensation that his heart rate is going fast but more importantly he states he feels a little short of breath. - Related Data Home Medications Medication Instructions Recorded Confirmed Metoprolol Succinate [Toprol XL] 50 mg PO DAILY 10/20/19 07/11/24 Benzonatate [Tessalon Perles] 100 mg PO TID PRN 07/11/24 07/11/24 Cholecalciferol [Vitamin D3 (125 250 mcg PO DAILY 07/11/24 07/11/24 Mcg = 5000 Iu)] Dupilumab [Dupixent Syringe] 300 mg SQ Q14D 07/11/24 07/11/24 Tamsulosin [Flomax] 0.4 mg PO HS 07/11/24 07/11/24 amLODIPine [Norvasc] 10 mg PO DAILY 07/11/24 07/11/24 Previous Rx's Medication Instructions Recorded Pantoprazole [Protonix] 40 mg PO DAILY #60 tab 07/13/24 predniSONE [Deltasone] 20 mg PO DAILY #59 tab 07/13/24 Allergies Allergy/AdvReac Type Severity Reaction Status Date / Time No Known Allergies Allergy Verified 08/14/24 13:03 Review of Systems ROS Statement: Those systems with pertinent positive or pertinent negative responses have been documented in the HPI. ROS Other: All systems not noted in ROS Statement are negative. Past Medical History Past Medical History: Atrial Fibrillation, Hypertension History of Any Multi-Drug Resistant Organisms: None Reported Past Surgical History: Adenoidectomy, Cholecystectomy, Tonsillectomy Additional Past Surgical History / Comment(s): COLONOSCOPY Past Anesthesia/Blood Transfusion Reactions: No Reported Reaction Past Psychological History: Anxiety Smoking Status: Never smoker Past Alcohol Use History: Occasional Past Drug Use History: None Reported - Past Family History Mother Family Medical History: Cancer General Exam - General Exam Comments Initial Comments: GENERAL: Patient is well-developed and well-nourished. Patient is nontoxic and well- hydrated and is in mild distress. ENT: Neck is soft and supple. No significant lymphadenopathy is noted. Oropharynx is clear. Moist mucous membranes. Neck has full range of motion without eliciting any pain. EYES: The sclera were anicteric and conjunctiva were pink and moist. Extraocular movements were intact and pupils were equal round and reactive to light. Eyelids were unremarkable. PULMONARY: Unlabored respirations. Good breath sounds bilaterally. No audible rales rhonchi or wheezing was noted. CARDIOVASCULAR: Patient is irregular and tachycardic at about 120 beats a minute ABDOMEN: Soft and nontender with normal bowel sounds. SKIN: Skin is clear with no lesions or rashes and otherwise unremarkable. NEUROLOGIC: Patient is alert and oriented x3. Cranial nerves II through XII are grossly intact. Motor and sensory are also intact. Normal speech, volume and content. Symmetrical smile. MUSCULOSKELETAL: Normal extremities with adequate strength and full range of motion. No lower extremity swelling or edema. No calf tenderness. LYMPHATICS: No significant lymphadenopathy is noted PSYCHIATRIC: Normal psychiatric evaluation. Limitations: no limitations Course Vital Signs 08/14/24 08/14/24 08/14/24 12:58 14:19 14:38 Temperature 97.7 F Pulse Rate 75 112 H 115 H Pulse Rate [ 112 H Pulmonology Technician ] Respiratory 18 18 18 Rate Blood Pressure 110/79 113/96 115/82 O2 Sat by Pulse 97 95 98 Oximetry Medical Decision Making - Medical Decision Making EKG is interpreted by myself and EKG shows atrial fibrillation with rapid ventricular response at 124 bpm QRS is 82 QT interval is 271 QTc is 344. Patient's EKG shows no ST segment elevation or depression. Was pt. sent in by a medical professional or institution (, ANDREY, FUND ACCOUNTING MANAGER, urgent care, hospital, or senior care...) When possible be specific @ -No Did you speak to anyone other than the patient for history (EMS, parent, family, police, friend...)? What history was obtained from this source @ -No Did you review nursing and triage notes (agree or disagree)? Why? @ -I reviewed and agree with nursing and triage notes Were old charts reviewed (outside hosp., previous admission, EMS record, old EKG, old radiological studies, urgent care reports/EKG's, senior care records)? Report findings @ -No old charts were reviewed Differential Diagnosis? @ -Differential Palpitations Ventricular arrhythmias, atrial arrhythmias, myocardial infarction, anemia, thyrotoxicosis, electrolyte imbalance, hypokalemia, pulmonary embolism, pulmonary disease, drugs, alcohol, anxiety, stress.... This is not meant to be an all-inclusive list. EKG interpreted by me (3pts min.). @ -As above X-rays interpreted by me (1pt min.). @ -Chest x-ray shows no acute abnormality CT interpreted by me (1pt min.). @ -None done U/S interpreted by me (1pt. min.). @ -None done What testing was considered but not performed or refused? (CT, X-rays, U/S, labs)? Why? @ -None What meds were considered but not given or refused? Why? @ -None Did you discuss the management of the patient with other professionals (professionals i.e. , PA, FUND ACCOUNTING MANAGER, lab, RT, psych nurse, social media marketing analyst, inspector watch train, teacher, chief knowledge officer, business case analyst)? Give summary @ -I spoke with Dr. Melton and he agreed to admit the patient Was smoking cessation discussed for >3mins.? @ -No Was critical care preformed (if so, how long)? @ -35 minutes Were there social determinants of health that impacted care today? How? (Homelessness, low income, unemployed, alcoholism, drug addiction, tr ansportation, low edu. Level, literacy, decrease access to med. care, prison, rehab)? @ -No Was there de-escalation of care discussed even if they declined (Discuss DNR or withdrawal of care, Hospice)? DNR status @ -No What co-morbidities impacted this encounter? (DM, HTN, Smoking, COPD, CAD, Cancer, CVA, ARF, Chemo, Hep., AIDS, mental health diagnosis, sleep apnea, morbid obesity)? @ -None Was patient admitted / discharged? Hospital course, mention meds given and route, prescriptions, significant lab abnormalities, going to OR and other pertinent info. @ -Patient has atrial fibrillation and was placed on a Cardizem drip after Cardizem bolus. Patient will be admitted to Dr. Frias with a consult to cardiology at this point in time heparin has been held because his platelets are 69 Undiagnosed new problem with uncertain prognosis? @ -No Drug Therapy requiring intensive monitoring for toxicity (Heparin, Nitro, Insulin, Cardizem)? @ -No Were any procedures done? @ -No Diagnosis/symptom? @ -A-fib with rapid ventricular response Acute, or Chronic, or Acute on Chronic? @ -Acute Uncomplicated (without systemic symptoms) or Complicated (systemic symptoms)? @ -Complicated Side effects of treatment? @ -No Exacerbation, Progression, or Severe Exacerbation? @ -No Poses a threat to life or bodily function? How? (Chest pain, [place], [place], pneumonia, PE, COPD, DKA, ARF, appy, cholecystitis, CVA, Diverticulitis, Homicidal, Suicidal, threat to staff... and all critical care pts) @ -Yes this could lead to clotting and severe morbidity or mortality - Lab Data Result diagrams: 08/14/24 14:26 08/14/24 14:26 Lab Results 08/14/24 08/14/24 08/14/24 Range/Units 14:26 14:26 14:26 WBC 8.78 (4.50-10.00) 10*3/uL RBC 5.21 (4.40-5.60) 10*6/uL Hgb 16.6 (13.0-17.0) g/dL Hct 45.6 (39.6-50.0) % MCV 87.5 (80.0-97.0) fL MCH 31.9 (27.0-32.0) pg MCHC 36.4 (32.0-37.0) g/dL Plt Count 69 L D (140-440) 10*3/uL MPV 10.8 (9.5-12.2) fL Immature Gran % (Auto) 4.8 % Neutrophils % 69.4 % Lymphocytes % 18.2 % Monocytes % 6.4 % Eosinophils % 0.3 % Basophils % 0.9 % Immature Gran # 0.42 H (0.00-0.04) 10*3/uL Neutrophils # 6.09 (1.80-7.70) 10*3/uL Lymphocytes # 1.60 (0.90-5.00) 10*3/uL Monocytes # 0.56 (0.20-1.00) 10*3/uL Eosinophils # 0.03 L (0.04-0.35) 10*3/uL Basophils # 0.08 (0.00-0.10) 10*3/uL PT 11.6 (10.0-12.5) sec INR 1.1 (<1.2) APTT 23.1 (22.0-30.0) sec Sodium 137 (137-145) mmol/L Potassium 3.9 (3.5-5.1) mmol/L Chloride 106 (98-107) mmol/L Carbon Dioxide 24 (22-30) mmol/L Anion Gap 7 mmol/L BUN 28 H (9-20) mg/dL Creatinine 0.98 (0.66-1.25) mg/dL Est GFR (CKD-EPI)AfAm >90 (>60 ml/min/1.73 sqM) Est GFR (CKD-EPI)NonAf 80 (>60 ml/min/1.73 sqM) Glucose 89 (74-99) mg/dL Calcium 9.4 (8.4-10.2) mg/dL Magnesium 2.0 (1.6-2.3) mg/dL Total Bilirubin 1.8 H (0.2-1.3) mg/dL AST 23 (17-59) U/L ALT 33 (4-49) U/L Alkaline Phosphatase 98 (38-126) U/L Troponin I (0.000-0.034) ng/mL Total Protein 5.8 L (6.3-8.2) g/dL Albumin 3.6 (3.5-5.0) g/dL 08/14/24 Range/Units 14:26 WBC (4.50-10.00) 10*3/uL RBC (4.40-5.60) 10*6/uL Hgb (13.0-17.0) g/dL Hct (39.6-50.0) % MCV (80.0-97.0) fL MCH (27.0-32.0) pg MCHC (32.0-37.0) g/dL Plt Count (140-440) 10*3/uL MPV (9.5-12.2) fL Immature Gran % (Auto) % Neutrophils % % Lymphocytes % % Monocytes % % Eosinophils % % Basophils % % Immature Gran # (0.00-0.04) 10*3/uL Neutrophils # (1.80-7.70) 10*3/uL Lymphocytes # (0.90-5.00) 10*3/uL Monocytes # (0.20-1.00) 10*3/uL Eosinophils # (0.04-0.35) 10*3/uL Basophils # (0.00-0.10) 10*3/uL PT (10.0-12.5) sec INR (<1.2) APTT (22.0-30.0) sec Sodium (137-145) mmol/L Potassium (3.5-5.1) mmol/L Chloride (98-107) mmol/L Carbon Dioxide (22-30) mmol/L Anion Gap mmol/L BUN (9-20) mg/dL Creatinine (0.66-1.25) mg/dL Est GFR (CKD-EPI)AfAm (>60 ml/min/1.73 sqM) Est GFR (CKD-EPI)NonAf (>60 ml/min/1.73 sqM) Glucose (74-99) mg/dL Calcium (8.4-10.2) mg/dL Magnesium (1.6-2.3) mg/dL Total Bilirubin (0.2-1.3) mg/dL AST (17-59) U/L ALT (4-49) U/L Alkaline Phosphatase (38-126) U/L Troponin I <0.012 (0.000-0.034) ng/mL Total Protein (6.3-8.2) g/dL Albumin (3.5-5.0) g/dL Disposition Clinical Impression: Atrial fibrillation with RVR Disposition: ADMITTED IP TO THIS HOSP Referrals: Jalil Miller MD [Primary Care Provider] - 1-2 days Time of Disposition: 15:26
[2024-08-14] MEDS: DILTIAZEM 5 MG/ML 5 ML VIAL IVP STA (14:33)
[2024-08-14 14:56] LABS: ALT 33 U/L (4-49); AST 23 U/L (17-59); African American GFR (CKD) >90 (>60 ml/min/1.73 sqM); Albumin 3.6 g/dL (3.5-5.0); Alkaline Phosphatase 98 U/L (38-126); Anion Gap 7 mmol/L; Blood Urea Nitrogen 28 mg/dL (9-20); Calcium 9.4 mg/dL (8.4-10.2); Carbon Dioxide 24 mmol/L (22-30); Chloride 106 mmol/L (98-107); Glucose 89 mg/dL (74-99); Non-African American GFR(CKD) 80 (>60 ml/min/1.73 sqM); Potassium 3.9 mmol/L (3.5-5.1); Sodium 137 mmol/L (137-145); Total Bilirubin 1.8 mg/dL (0.2-1.3); Total Protein 5.8 g/dL (6.3-8.2)
[2024-08-14 15:04] LABS: INR 1.1 (<1.2); Partial Thromboplastin Time 23.1 sec (22.0-30.0); Prothrombin Time 11.6 sec (10.0-12.5)
[2024-08-14 15:15] LABS: Basophils # (A) 0.08 10*3/uL (0.00-0.10); Basophils % (A) 0.9 %; Eosinophils # (A) 0.03 10*3/uL (0.04-0.35); Eosinophils % (A) 0.3 %; HCT 45.6 % (39.6-50.0); HGB 16.6 g/dL (13.0-17.0); Lymphocytes % (A) 18.2 %; MCH 31.9 pg (27.0-32.0); MCHC 36.4 g/dL (32.0-37.0); MCV 87.5 fL (80.0-97.0); Mean Platelet Volume 10.8 fL (9.5-12.2); Monocytes # (A) 0.56 10*3/uL (0.20-1.00); Monocytes % (A) 6.4 %; Neutrophils # (A) 6.09 10*3/uL (1.80-7.70); Neutrophils % (A) 69.4 %; RBC 5.21 10*6/uL (4.40-5.60); WBC 8.78 10*3/uL (4.50-10.00)
--- NOTE | 2024-08-14 15:18 | XR ---
EXAMINATION TYPE: XR chest 2V DATE OF EXAM: 08/14/2024 2:50 PM COMPARISON: Chest radiographs from 07/13/2024. CLINICAL INDICATION: Male, 68 years old with history of dysrhythmia; [facility] TECHNIQUE: XR chest 2V Frontal and lateral views of the chest. FINDINGS: Lungs/Pleura: There is flattening of the diaphragm with increased lucency of the lungs. No evidence o f pneumothorax, pleural effusion or focal consolidation. Pulmonary vascularity: Unremarkable. Heart/mediastinum: Cardiomediastinal silhouette is unremarkable. Musculoskeletal: No acute osseous pathology. IMPRESSION: 1. No acute cardiopulmonary disease process. 2. COPD changes. [facility], , 08/14/2024 3:16 PM
[2024-08-14] MEDS: SODIUM CHLORIDE 0.9% 1,000 ML IV ONE (15:42)
[2024-08-14 17:03] LABS: Platelet Count 69 10*3/uL (140-440)
[2024-08-14 17:04] LABS: Large Platelets Present
[2024-08-14] MEDS: ENOXAPARIN 80 MG/0.8 ML SYRINGE SQ SCH (20:00)
[2024-08-14 20:14] LABS: T4, Free (Free Thyroxine) 1.92 ng/dL (0.78-2.19)
[2024-08-14] MEDS: TAMSULOSIN 0.4 MG CAP.ER.24H PO SCH (20:43)
[2024-08-15] MEDS ORDERED: amLODIPine 10 MG TAB PO SCH (09:00)
[2024-08-15] MEDS: FLECAINIDE 50 MG TAB PO SCH (09:08)
[2024-08-15] MEDS: METOPROLOL SUCCINATE (ER) 50 MG TAB.ER.24H PO SCH (09:08)
--- NOTE | 2024-08-15 09:54 | P.CRDCN ---
History of Present Illness History of present illness: HISTORY OF PRESENT ILLNESS: This is a 68-year-old male with a past medical history significant for atrial fibrillation and thrombocytopenia secondary to ITP. Patient follows in the office with Dr. Olsen. We have been asked to see the patient in consultation for A-fib with RVR. Patient examined at the bedside in the emergency room. Patient presented to the hospital for chief complaint of palpitations and shortness of breath. Patient was found to be in atrial fibrillation with RVR. He was started on IV Cardizem. He remains in atrial fibrillation with a heart rate around 115 at the time of examination. He states this is his first episode of atrial fibrillation in approximately 5 years. The patient is not anticoagulated at the moment due to thrombocytopenia. He does follow with hematology and has been referred seething Rituxan infusions. He states he has had 2 infusions so far and is supposed to have 2 more. Patient denies any known history of sleep apnea. He denies any alcohol use. It is noted that the patient saw Dr. Olsen on 08/07/2024 and was in sinus mechanism at that time. DIAGNOSTICS: - EKG reveals A-fib with RVR. - Chest xray negative for acute process. COPD changes.. - Laboratory data: WBC 8.78. Hemoglobin 16.6. Platelet count 69. Sodium 137. Potassium 3.9. BUN 28. Creatinine 0.98 troponin negative x 1. proBNP 1870. TSH 1.290. - Current home cardiac medications include amlodipine 10 mg daily, metoprolol succinate 50 mg daily. - Most recent echocardiogram obtained in July 2023 reveals 50 to 55%, trace aortic regurgitation, mild MR, mild TR. - Patient underwent Lexiscan stress test in December 2019 which was negative for ischemia REVIEW OF SYSTEMS: At the time of my exam: CONSTITUTIONAL: Denies fever or chills. HEENT: Denies blurred vision, vision changes, or eye pain. Denies hemoptysis CARDIOVASCULAR: Denies chest pain. Denies orthopnea. Denies PND. Denies palpitations RESPIRATORY: Denies shortness of breath. GASTROINTESTINAL: Denies abdominal pain. Denies nausea or vomiting. HEMATOLOGIC: Denies bleeding disorders. GENITOURINARY: Denies any blood in urine. SKIN: Denies pruitis. Denies rash. PHYSICAL EXAM: VITAL SIGNS: Reviewed. GENERAL: Well-developed in no acute distress. HEENT: Head is normocephalic. Pupils are equal, round. Sclerae anicteric. Mucous membranes of the mouth are moist. Neck supple. No JVD or thyromegaly LUNGS: Respirations even and unlabored. Lungs essentially clear to auscultation bilaterally. HEART: Tachycardic. Irregular rate and rhythm. S1 and S2 heard. ABDOMEN: Soft. Nondistended. Nontender. EXTREMITIES: Normal range of motion. No clubbing or cyanosis. Peripheral pulses intact. No lower extremity edema NEUROLOGIC: Awake and alert. Oriented x 3. ASSESSMENT: Shortness of breath and palpitations Paroxysmal atrial fibrillation with RVR Thrombocytopenia secondary to ITP, receiving Rituxan infusions outpatient Obesity: BMI 30.3 PLAN: Obtain 2D echo to assess cardiac structure and function No anticoagulation due to thrombocytopenia Continue metoprolol succinate 50 mg daily Continue IV Cardizem. Wean as heart rate will tolerate. Discontinue amlodipine as patient is currently on IV Cardizem Add flecainide 50 mg every 12 hours Continue telemetry monitoring Further recommendations pending patient course Nurse practitioner note has been reviewed by physician. Signing provider agrees with the documented findings, assessment, and plan of care documented by TAMPER OPERATOR as a scribe. Past Medical History Past Medical History: Atrial Fibrillation, Hypertension Additional Past Medical History / Comment(s): noncancerous growth on colon was removed in 2012, cardioversion in 2019, platelet disorder, bolluds skin di sorder, retuckin infusions at [facility]. History of Any Multi-Drug Resistant Organisms: None Reported Past Surgical History: Adenoidectomy, Cholecystectomy, Tonsillectomy Additional Past Surgical History / Comment(s): COLONOSCOPY Past Anesthesia/Blood Transfusion Reactions: No Reported Reaction Smoking Status: Never smoker - Past Family History Mother Family Medical History: Cancer Medications and Allergies Home Medications Medication Instructions Recorded Confirmed Type Metoprolol Succinate [Toprol XL] 50 mg PO DAILY 10/20/19 08/14/24 History Cholecalciferol [Vitamin D3 (125 250 mcg PO DAILY 07/11/24 08/14/24 History Mcg = 5000 Iu)] Tamsulosin [Flomax] 0.4 mg PO HS 07/11/24 08/14/24 History amLODIPine [Norvasc] 10 mg PO DAILY 07/11/24 08/14/24 History Multivitamins, Thera [Multivitamin 1 tab PO DAILY 08/14/24 08/14/24 History (formulary)] Allergies Allergy/AdvReac Type Severity Reaction Status Date / Time No Known Allergies Allergy Verified 08/14/24 16:35 Physical Exam Vitals: Vital Signs Temp Pulse Pulse Resp BP BP Pulse Ox 08/15/24 09:00 117 H 21 117/76 97 08/15/24 04:00 98.7 F 120 H 18 102/64 98 08/14/24 23:50 94 18 114/77 98 08/14/24 20:00 98.2 F 114 H 18 126/81 95 08/14/24 18:34 98.1 F 100 18 104/74 97 08/14/24 17:42 102 H 18 120/81 100 08/14/24 17:04 125 H 18 120/87 97 08/14/24 15:37 110 H 18 122/74 97 08/14/24 15:34 104 H 08/14/24 14:38 115 H 18 115/82 98 08/14/24 14:19 112 H 112 H 18 113/96 95 08/14/24 12:58 97.7 F 75 18 110/79 97 Intake and Output 08/14/24 08/15/24 08/15/24 22:59 06:59 14:59 Intake Total 13 109.333 Balance 13 109.333 Intake: Intake, IV Titration 13 109.333 Amount Diltiazem 125 mg In 13 109.333 Dextrose 5% in Water 100 ml @ 5 MG/HR 5 mls/hr IV .Q24H [facility] Rx#:[id number] Other: Voiding Method Toilet Toilet # Voids 1 # Bowel Movements 1 Weight 107.048 kg Results 08/14/24 14:26 08/14/24 14:26 Cardiac Enzymes 08/14/24 08/14/24 Range/Units 14:26 14:26 AST 23 (17-59) U/L Troponin I <0.012 (0.000-0.034) ng/mL Coagulation 08/14/24 Range/Units 14:26 PT 11.6 (10.0-12.5) sec APTT 23.1 (22.0-30.0) sec CBC 08/14/24 Range/Units 14:26 WBC 8.78 (4.50-10.00) 10*3/uL RBC 5.21 (4.40-5.60) 10*6/uL Hgb 16.6 (13.0-17.0) g/dL Hct 45.6 (39.6-50.0) % Plt Count 69 L D (140-440) 10*3/uL Comprehensive Metabolic Panel 08/14/24 Range/Units 14:26 Sodium 137 (137-145) mmol/L Potassium 3.9 (3.5-5.1) mmol/L Chloride 106 (98-107) mmol/L Carbon Dioxide 24 (22-30) mmol/L BUN 28 H (9-20) mg/dL Creatinine 0.98 (0.66-1.25) mg/dL Glucose 89 (74-99) mg/dL Calcium 9.4 (8.4-10.2) mg/dL AST 23 (17-59) U/L ALT 33 (4-49) U/L Alkaline Phosphatase 98 (38-126) U/L Total Protein 5.8 L (6.3-8.2) g/dL Albumin 3.6 (3.5-5.0) g/dL Current Medications Generic Name Dose Route Start Last Admin Trade Name Freq PRN Reason Stop Dose Admin Enoxaparin Sodium 80 mg 08/14/24 19:30 08/14/24 20:00 Enoxaparin 80 Mg/0.8 Ml Syringe SQ Not Given DAILY ELLA Flecainide Acetate 50 mg 08/15/24 09:00 08/15/24 09:08 Flecainide 50 Mg Tab PO 50 mg Q12HR ELLA Administration Diltiazem HCl 125 mg/ Dextrose 125 mls @ 5 mls/hr 08/14/24 14:00 08/15/24 04:01 /Water IV 10 mg/hr .Q24H ELLA 10 mls/hr Administration Protocol 5 MG/HR Metoprolol Succinate 50 mg 08/15/24 09:00 08/15/24 09:08 Metoprolol Succinate (Er) 50 Mg Tab.Er.24h PO 50 mg DAILY ELLA Administration Tamsulosin HCl 0.4 mg 08/14/24 21:00 08/14/24 20:43 Tamsulosin 0.4 Mg Cap.Er.24h PO 0.4 mg HS ELLA Administration Intake and Output 08/14/24 08/15/24 08/15/24 22:59 06:59 14:59 Intake Total 13 109.333 Balance 13 109.333 Intake: Intake, IV Titration 13 109.333 Amount Diltiazem 125 mg In 13 109.333 Dextrose 5% in Water 100 ml @ 5 MG/HR 5 mls/hr IV .Q24H [facility] Rx#:[id number] Other: Voiding Method Toilet Toilet # Voids 1 # Bowel Movements 1 Weight 107.048 kg 08/14/24 14:26 08/14/24 14:26
--- NOTE | 2024-08-15 10:44 | CA ---
Transthoracic Echo Report Name: Marvin Carter Age: 68 Gender: M : 1955 Exam Date: 08/15/2024 08:31 Exam Location: [place] Echo Ht (in): 74 Wt (lb): 236 Ordering Physician: Jalil Miller MD Attending/Referring Phys: Angela ARELLANO Drafter Electrical Rebekah Patel, RDCOOKIE Procedure CPT: Indications: AF Cardiac Hx: Hx of cardioversion, HTN Technical Quality: Good Contrast 1: Total Dose (mL): Contrast 2: Total Dose (mL): MEASUREMENTS (Male / Female) Normal Values 2D ECHO LV Diastolic Diameter PLAX 4.4 cm 4.2 - 5.9 / 3.9 - 5.3 cm LV Systolic Diameter PLAX 3.7 cm IVS Diastolic Thickness 1.5 cm 0.6 - 1.0 / 0.6 - 0.9 cm LVPW Diastolic Thickness 1.6 cm 0.6 - 1.0 / 0.6 - 0.9 cm LV Relative Wall Thickness 0.7 RV Internal Dim ED PLAX 3.3 cm LA Systolic Diameter LX 4.6 cm 3.0 - 4.0 / 2.7 - 3.8 cm LV Diastolic Volume MOD 4C 77.6 cm??? LV Systolic Volume MOD 4C 25.8 cm??? LV Ejection Fraction MOD 4C 66.8 % LV Cardiac Index MOD 4C 2517.9 cm???/min???m??? LV Diastolic Length 4C 5.9 cm LV Systolic Length 4C 4.9 cm LV Diastolic Volume MOD 2C 153.5 cm??? LV Systolic Volume MOD 2C 70.4 cm??? LV Ejection Fraction MOD 2C 54.1 % LV Cardiac Index MOD 2C 4037.5 cm???/min???m??? LV Diastolic Length 2C 7.5 cm LV Systolic Length 2C 6.3 cm LA Volume 114.9 cm??? 18 - 58 / 22 - 52 cm??? LA Volume Index 48.1 cm???/m??? 16 - 28 cm???/m??? M-MODE Aortic Root Diameter MM 4.1 cm AV Cusp Separation MM 2.8 cm DOPPLER AV Peak Velocity 116.0 cm/s AV Peak Gradient 5.4 mmHg MV Area PHT 6.2 cm??? MV Deceleration Time 106.9 ms TR Peak Velocity 238.0 cm/s TR Peak Gradient 22.7 mmHg Right Ventricular Systolic Press 27.6 mmHg FINDINGS Left Ventricle Left ventricular ejection fraction is estimated at 55-60 %. Left ventricular cavity size normal. Moderately increased septal wall thickness. No obvious regional wall motion abnormalities. Right Ventricle Mild right ventricular dilatation. Right ventricular systolic pressure within normal limits. Right Atrium Normal right atrial size. No right atrial thrombus or mass seen. Left Atrium Mildly increased left atrial diameter. Severely increased left atrial volume. Moderately increased left atrial area. No left atrial thrombus or mass present. Mitral Valve Structurally normal mitral valve. Mitral annular calcification. Mild mitral regurgitation. Aortic Valve Trileaflet aortic valve. Thickened aortic valve without stenosis. No aortic stenosis. No aortic regurgitation. Tricuspid Valve Structurally normal tricuspid valve. Mild tricuspid regurgitation. Pulmonic Valve Structurally normal pulmonic valve. Trace pulmonic regurgitation. Pericardium No pericardial effusion. Aorta Moderate aortic dilatation at the level of the sinuses of valsalva 41 mm CONCLUSIONS Normal LV size and systolic function. Significant enlargement of left atrium. Mild mitral annular calcification with mild mitral regurgitation. Mild tricuspid regurgitation. No pericardial effusion prominent aortic root Previewed by: Dr. Gualberto Marin MD (Electronically Signed) Final Date: 15 Aug 2024 10:43
[2024-08-15] MEDS: NYSTATIN 100,000 UNIT/ML SUSP 500,000 UNIT/5 ML CUP PO SCH (16:14)
--- NOTE | 2024-08-15 16:42 | P.CONS ---
History of Present Illness - Reason for Consult Consult date: 08/15/24 afib, thrombocytopenia Requesting physician: Jalil Miller - Chief Complaint palpitations - History of Present Illness Mr. Carter is a pleasant 68-year-old male patient of Dr. 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 No evidence of recurrent disease. Patient was seen in consult at [facility] 07/12/2024 because of new onset thrombocytopenia. At that time patient had reported he had not been feeling well for a few weeks, he was given steroids and antibiotics by his [facility] physician. He had some labs drawn at that time and was contacted after that laboratory workup was completed and told that he need to be seen in the emergency room because his platelets were 9000. Patient reported at that time a remote history of atrial fibrillation was on Eliquis for the same. He had stopped taking that medication for low plt. Patient was placed on steroids, plt initially increased slightly but counts were overall labile with dose reductions. Was felt that he was refractory to steroids so, he was started on monoclonal antibody therapy, scheduled weekly x 4, he has had 2 doses. Platelets on 07/19 were 25,000, 07/26/2024 they were 16,000, 08/01/2024 they were 25,000, 08/08/2024 they were 32,000. Patient reports he began experiencing the palpitations and sensation with breathing that he had felt prior when he has had atrial fibrillation. He came to the emergency room for assessment, he is found to be in atrial fibrillation with RVR. Has been started on Cardizem drip, he has been evaluated by cardiology, platelets are 69,000 today Review of Systems 10 point review of systems was negative except as stated in HPI Past Medical History Past Medical History: Atrial Fibrillation, Blood Disorder (ITP), Hypertension Additional Past Medical History / Comment(s): noncancerous growth on colon was removed in 2012, cardioversion in 2019, platelet disorder, bolluds skin disorder, retuckin infusions at [facility]. History of Any Multi-Drug Resistant Organisms: None Reported Past Surgical History: Adenoidectomy, Cholecystectomy, Tonsillectomy Additional Past Surgical History / Comment(s): COLONOSCOPY Past Anesthesia/Blood Transfusion Reactions: No Reported Reaction Smoking Status: Never smoker - Past Family History Mother Family Medical History: Cancer Medications and Allergies Home Medications Medication Instructions Recorded Confirmed Type Metoprolol Succinate [Toprol XL] 50 mg PO DAILY 10/20/19 08/14/24 History Cholecalciferol [Vitamin D3 (125 250 mcg PO DAILY 07/11/24 08/14/24 History Mcg = 5000 Iu)] Tamsulosin [Flomax] 0.4 mg PO HS 07/11/24 08/14/24 History amLODIPine [Norvasc] 10 mg PO DAILY 07/11/24 08/14/24 History Multivitamins, Thera [Multivitamin 1 tab PO DAILY 08/14/24 08/14/24 History (formulary)] Allergies Allergy/AdvReac Type Severity Reaction Status Date / Time No Known Allergies Allergy Verified 08/14/24 16:35 Physical Exam Vitals: Vital Signs Temp Pulse Pulse Resp BP BP Pulse Ox 08/15/24 09:00 117 H 21 117/76 97 08/15/24 04:00 98.7 F 120 H 18 102/64 98 08/14/24 23:50 94 18 114/77 98 08/14/24 20:00 98.2 F 114 H 18 126/81 95 08/14/24 18:34 98.1 F 100 18 104/74 97 08/14/24 17:42 102 H 18 120/81 100 08/14/24 17:04 125 H 18 120/87 97 08/14/24 15:37 110 H 18 122/74 97 08/14/24 15:34 104 H 08/14/24 14:38 115 H 18 115/82 98 08/14/24 14:19 112 H 112 H 18 113/96 95 08/14/24 12:58 97.7 F 75 18 110/79 97 Intake and Output 08/14/24 08/15/24 08/15/24 22:59 06:59 14:59 Intake Total 13 109.333 Balance 13 109.333 Intake: Intake, IV Titration 13 109.333 Amount Diltiazem 125 mg In 13 109.333 Dextrose 5% in Water 100 ml @ 5 MG/HR 5 mls/hr IV .Q24H [facility] Rx#:[id number] Other: Voiding Method Toilet Toilet # Voids 1 # Bowel Movements 1 Weight 107.048 kg - Constitutional General appearance: average body habitus, cooperative, no acute distress - EENT Eyes: anicteric sclerae, EOMI ENT: hearing grossly normal, thrush - Neck Neck: no lymphadenopathy - Respiratory Respiratory: bilateral: CTA - Cardiovascular Rhythm: irregularly irregular Heart sounds: normal: S1, S2 Abnormal Heart Sounds: no systolic murmur, no diastolic murmur, no rub, no S3 Gallop, no S4 Gallop, no click, no other - Gastrointestinal General gastrointestinal: no absent bowel sounds, no decreased bowel sounds, no distended, no hepatomegaly, no hyperactive bowel sounds, normal bowel sounds, no organomegaly, no rigid, no scaphoid, soft, no splenomegaly, no tenderness, no umbilical hernia, no ventral hernia - Integumentary Integumentary: normal - Neurologic Neurologic: CNII-XII intact - Musculoskeletal Musculoskeletal: strength equal bilaterally - Psychiatric Psychiatric: A&O x's 3, appropriate affect, intact judgment & insight Results CBC & Chem 7: 08/14/24 14:26 08/14/24 14:26 Labs: Abnormal Lab Results - Last 24 Hours (Table) 08/14/24 08/14/24 Range/Units 14:26 14:26 Plt Count 69 L D (140-440) 10*3/uL Immature Gran # 0.42 H (0.00-0.04) 10*3/uL Eosinophils # 0.03 L (0.04-0.35) 10*3/uL BUN 28 H (9-20) mg/dL Total Bilirubin 1.8 H (0.2-1.3) mg/dL Total Protein 5.8 L (6.3-8.2) g/dL Assessment and Plan (1) Atrial fibrillation with RVR Current Visit: Yes Status: Acute Priority: High Code(s): I48.91 - UNSPECIFIED ATRIAL FIBRILLATION SNOMED Code(s): 088035509360598 (2) Thrombocytopenia Current Visit: Yes Status: Chronic Priority: Medium Code(s): D69.6 - THROMBOCYTOPENIA, UNSPECIFIED SNOMED Code(s): 561018548 Plan: Atrial fibrillation with RVR - Patient is history of the same, as stated in HPI - Cardiology has seen and examined the patient. Patient is on medications for treatment of the same - Pending Cardiology recommendations ITP -Diagnosed 1 month ago -Steroid refractory - Status post 2 doses of monoclonal antibody with best platelet count he has had in quite some time, 69,000 today. -Typically from a hematology standpoint, platelets greater than 50,000 are okay for anticoagulation. It is unclear at this time how durable this increase platelet count is after 2/4 doses of monoclonal antibody. -Redraw CBC in a.m. to see what platelet count level is - We will work with closely with Cardiology -Continue with monoclonal antibody infusions as soon as patient is discharged from the hospital Doctor attests: I performed a history and physical examination of this patient, developed impression and plan of care. Discussed with dictator. I agree with dictators note, documented as a scribe.
--- NOTE | 2024-08-16 00:18 | HP ---
HISTORY AND PHYSICAL CHIEF COMPLAINT: Shortness of breath and rapid heart beating. HISTORY OF PRESENT ILLNESS: This is another admission for this 68-year-old white male. He has had a history of atrial fibrillation in the past, which has been controlled. He was on an anticoagulant, but he has developed thrombocytopenia for which he follows with Hematology and he was taken off the Eliquis when his platelet count dropped down below 50,000. He came in the office on day of admission stating that he knew his heart rate was beating fast and he was short of breath. His rate was between 110 and 120 and because of shortness of breath, it was felt prudent to send him to the emergency room where he was evaluated and admitted. He has not had any significant chest pain, but has mentioned a little bit of discomfort in the chest on and off. BNP is elevated. Troponin is normal. REVIEW OF SYSTEMS: Otherwise unremarkable. He has not had any fever, chills, etc. Past Medical History, Family History, Personal and Social History revealed that he cannot take amlodipine, but he is on 10 mg once a day. He is on pantoprazole, metoprolol, tamsulosin, and Rituxan for his thrombocytopenia. Remainder of his history is unremarkable. He does not smoke or abuse alcohol. PHYSICAL EXAMINATION: VITAL SIGNS: Pulse is 120 and irregularly regular; blood pressure 124/74; respirations are 36. GENERAL: Appears to be well developed, well nourished, no acute distress. SKIN: Color is normal. Skin is warm and dry. HEAD, EARS, EYES, NOSE, MOUTH, AND THROAT: Normal. CHEST: Clear. There are no rales or rhonchi. CARDIAC: Demonstrates atrial fibrillation. ABDOMEN: Soft, nontender. EXTREMITIES: Normal. NEUROLOGIC: He is intact. DIAGNOSES: He is admitted to the hospital with diagnoses of: 1. Recurrent atrial fibrillation with rapid ventricular response. 2. Shortness of breath. 3. Elevated BNP. 4. Thrombocytopenia. PLAN: 1. Bedrest. 2. IV fluids. 3. Nasal O2. 4. Consult Cardiology and Hematology. MMODL / JAIMEEN: [id number] /
[2024-08-16 06:48] LABS: HCT 42.4 % (39.6-50.0); HGB 14.8 g/dL (13.0-17.0); Immature Platelet Fraction 2.8 % (1.1-6.1); MCH 30.8 pg (27.0-32.0); MCHC 34.9 g/dL (32.0-37.0); MCV 88.1 fL (80.0-97.0); Mean Platelet Volume 9.9 fL (9.5-12.2); RBC 4.81 10*6/uL (4.40-5.60); RDW 13.1 % (11.5-14.5); WBC 6.68 10*3/uL (4.50-10.00)
[2024-08-16 06:53] LABS: Platelet Count 60 10*3/uL (140-440)
[2024-08-16] MEDS: FLECAINIDE 50 MG TAB PO STA (11:53)
[2024-08-16] MEDS: METOPROLOL SUCCINATE (ER) 50 MG TAB.ER.24H PO STA (11:53)
--- NOTE | 2024-08-16 12:07 | P.PN ---
Subjective HISTORY OF PRESENT ILLNESS: This is a 68-year-old male with a past medical history significant for atrial fibrillation and thrombocytopenia secondary to ITP. Patient follows in the office with Dr. Olsen. We have been asked to see the patient in consultation for A-fib with RVR. Patient examined at the bedside in the emergency room. Patient presented to the hospital for chief complaint of palpitations and shortness of breath. Patient was found to be in atrial fibrillation with RVR. He was started on IV Cardizem. He remains in atrial fibrillation with a heart rate around 115 at the time of examination. He states this is his first episode of atrial fibrillation in approximately 5 years. The patient is not anticoagulated at the moment due to thrombocytopenia. He does follow with hematology and has been referred seething Rituxan infusions. He states he has had 2 infusions so far and is supposed to have 2 more. Patient denies any known history of sleep apnea. He denies any alcohol use. It is noted that the patient saw Dr. Olsen on 08/07/2024 and was in sinus mechanism at that time. DIAGNOSTICS: - EKG reveals A-fib with RVR. - Chest xray negative for acute process. COPD changes.. - Laboratory data: WBC 8.78. Hemoglobin 16.6. Platelet count 69. Sodium 137. Potassium 3.9. BUN 28. Creatinine 0.98 troponin negative x 1. proBNP 1870. TSH 1.290. - Current home cardiac medications include amlodipine 10 mg daily, metoprolol succinate 50 mg daily. - Most recent echocardiogram obtained in July 2023 reveals 50 to 55%, trace aortic regurgitation, mild MR, mild TR. - Patient underwent Lexiscan stress test in December 2019 which was negative for ischemia 08/16/2024 Patient examined this morning at the bedside. Patient remains in atrial fibrillation with heart rate in the 80s90s. He is currently on IV Cardizem at 10 mg an hour. Patient without complaints of chest pain or pressure. He denies shortness of breath. Echocardiogram completed revealing ejection fraction 55 to 60%, no obvious regional wall motion abnormalities, mild MR, mild TR. PHYSICAL EXAM: VITAL SIGNS: Reviewed. GENERAL: Well-developed in no acute distress. HEENT: Head is normocephalic. Pupils are equal, round. Sclerae anicteric. Mucous membranes of the mouth are moist. Neck supple. No JVD or thyromegaly LUNGS: Respirations even and unlabored. Lungs essentially clear to auscultation bilaterally. HEART: Irregular rate and rhythm. S1 and S2 heard. ABDOMEN: Soft. Nondistended. Nontender. EXTREMITIES: Normal range of motion. No clubbing or cyanosis. Peripheral pulses intact. No lower extremity edema NEUROLOGIC: Awake and alert. Oriented x 3. ASSESSMENT: Shortness of breath and palpitations Paroxysmal atrial fibrillation with RVR Thrombocytopenia secondary to ITP, receiving Rituxan infusions outpatient Obesity: BMI 30.3 PLAN: Discontinue IV Cardizem Increase metoprolol succinate to 100 mg daily Increase flecainide to 100 mg twice a day Case discussed with hematology who is okay with beginning anticoagulation as patient's platelets are greater than 50. Will begin Eliquis 5 mg twice a day Continue telemetry monitoring Possible discharge home tomorrow if patient remains stable Will consider outpatient cardioversion if patient remains in atrial fibrillation now that he has been placed on anticoagulation Further recommendations pending patient course Nurse practitioner note has been reviewed by physician. Signing provider agrees with the documented findings, assessment, and plan of care documented by BOATBUILDER APPRENTICE WOOD as a scribe. Objective - Vital Signs Vital signs: Vital Signs Temp 97.8 F 08/16/24 08:35 Pulse 103 H 08/16/24 08:35 Resp 17 08/16/24 08:35 BP 130/78 08/16/24 08:35 Pulse Ox 95 08/16/24 08:35 FiO2 Intake & Output 08/15/24 08/16/24 08/16/24 18:59 06:59 18:59 Intake Total 243 96 240 Balance 243 96 240 Weight 106.9 kg Intake: Intake, IV Titration 125 96 Amount Diltiazem 125 mg In 125 96 Dextrose 5% in Water 100 ml @ 5 MG/HR 5 mls/hr IV .Q24H [facility] Rx#:[id number] Oral 118 240 Other: Voiding Method Toilet Toilet Toilet # Voids 3 2 - Labs CBC & Chem 7: 08/16/24 06:27 08/14/24 14:26 Labs: Abnormal Lab Results - Last 24 Hours (Table) 08/16/24 Range/Units 06:27 Plt Count 60 L (140-440) 10*3/uL
[2024-08-16] MEDS: APIXABAN 5 MG TAB PO SCH (13:31)
--- NOTE | 2024-08-16 14:54 | PN ---
PROGRESS NOTE CHIEF COMPLAINT: Atrial fibrillation. HISTORY OF PRESENT ILLNESS: This gentleman is doing well, but he has had no chest pain or shortness of breath. Pulse is still around 100. He is still in atrial fibrillation. He has been seen by Cardiology. PHYSICAL EXAMINATION: CHEST: Clear. CARDIAC: Exam demonstrates atrial fibrillation with a rate of around 110. ABDOMEN: Soft, nontender. IMPRESSION: 1. Atrial fibrillation. 2. Congestive heart failure. PLAN: Continue to follow. He has been placed on flecainide in hopes that he will convert. His platelet count is up over 50,000 and he could probably be placed back on Eliquis, but we will wait for recommendations from Hematology. MMODL / IJN: [id number] /
--- NOTE | 2024-08-16 16:22 | P.PN ---
Subjective Progress Note Date: 08/16/24 Principal diagnosis: ITP, a-fib In follow-up today patient continues on cardiac medications, he is not symptomatic from atrial fibrillation, he feels that his heart rate is a little more normal. He denies any shortness of breath, cough, he denies any bleeding. Objective - Vital Signs Vital signs: Vital Signs Temp 98.2 F 08/16/24 11:52 Pulse 73 08/16/24 11:52 Resp 17 08/16/24 11:52 BP 118/77 08/16/24 11:52 Pulse Ox 98 08/16/24 11:52 FiO2 Intake & Output 08/15/24 08/16/24 08/16/24 18:59 06:59 18:59 Intake Total 243 96 240 Balance 243 96 240 Weight 106.9 kg Intake: Intake, IV Titration 125 96 Amount Diltiazem 125 mg In 125 96 Dextrose 5% in Water 100 ml @ 5 MG/HR 5 mls/hr IV .[facility] Rx#:[id number] Oral 118 240 Other: Voiding Method Toilet Toilet Toilet # Voids 3 2 - Constitutional General appearance: Present: average body habitus, cooperative, no acute distress - EENT Eyes: Present: anicteric sclerae, EOMI ENT: Present: hearing grossly normal, normal oropharynx - Respiratory Details: resp unlabored at rest - Cardiovascular Rhythm: regular - Peripheral edema foot Peripheral Edema: bilateral: None - Integumentary Integumentary: Present: normal - Neurologic Neurologic: Present: CNII-XII intact - Musculoskeletal Musculoskeletal: Present: strength equal bilaterally - Psychiatric Psychiatric: Present: A&O x's 3, appropriate affect, intact judgment & insight - Labs CBC & Chem 7: 08/16/24 06:27 08/14/24 14:26 Labs: Abnormal Lab Results - Last 24 Hours (Table) 08/16/24 Range/Units 06:27 Plt Count 60 L (140-440) 10*3/uL Assessment and Plan (1) Atrial fibrillation with RVR Current Visit: Yes Status: Acute Priority: High Code(s): I48.91 - UNSPECIFIED ATRIAL FIBRILLATION SNOMED Code(s): 567435600321214 (2) Thrombocytopenia Current Visit: Yes Status: Chronic Priority: Medium Code(s): D69.6 - THROMBOCYTOPENIA, UNSPECIFIED SNOMED Code(s): 853675427 Plan: Atrial fibrillation with RVR - Patient is history of the same, as stated in consult - Cardiology has seen and examined the patient, prescribed medications for treatment of the same -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 Patient is okay for anticoagulation as long as platelets are above 50,000. Patient has platelet monitoring weekly with Hematology ITP -Diagnosed 1 month ago -Steroid refractory - Status post 2 doses of monoclonal antibody with best platelet count he has had in quite some time, 69,000 on admit, 60,000 today. -From Hematology standpoint, platelets greater than 50,000 are okay for anticoagulation. If plt fall below 50,000 anticoagulation will need to be held. -Pt will need to be continued on treatment for ITP, as soon as patient is discharged from the hospital. We will plan for the same
[2024-08-16] MEDS: FLECAINIDE 50 MG TAB PO SCH (21:24)
[2024-08-16 23:37] VITALS: RESP 16; TEMP 98.4
[2024-08-17] MEDS: METOPROLOL SUCCINATE (ER) 100 MG TAB.ER.24H PO SCH (09:53)
--- NOTE | 2024-08-17 11:19 | P.PN ---
Subjective HISTORY OF PRESENT ILLNESS: This is a 68-year-old male with a past medical history significant for atrial fibrillation and thrombocytopenia secondary to ITP. Patient follows in the office with Dr. Olsen. We have been asked to see the patient in consultation for A-fib with RVR. Patient examined at the bedside in the emergency room. Patient presented to the hospital for chief complaint of palpitations and shortness of breath. Patient was found to be in atrial fibrillation with RVR. He was started on IV Cardizem. He remains in atrial fibrillation with a heart rate around 115 at the time of examination. He states this is his first episode of atrial fibrillation in approximately 5 years. The patient is not anticoagulated at the moment due to thrombocytopenia. He does follow with hematology and has been referred seething Rituxan infusions. He states he has had 2 infusions so far and is supposed to have 2 more. Patient denies any known history of sleep apnea. He denies any alcohol use. It is noted that the patient saw Dr. Olsen on 08/07/2024 and was in sinus mechanism at that time. DIAGNOSTICS: - EKG reveals A-fib with RVR. - Chest xray negative for acute process. COPD changes.. - Laboratory data: WBC 8.78. Hemoglobin 16.6. Platelet count 69. Sodium 137. Potassium 3.9. BUN 28. Creatinine 0.98 troponin negative x 1. proBNP 1870. TSH 1.290. - Current home cardiac medications include amlodipine 10 mg daily, metoprolol succinate 50 mg daily. - Most recent echocardiogram obtained in July 2023 reveals 50 to 55%, trace aortic regurgitation, mild MR, mild TR. - Patient underwent Lexiscan stress test in December 2019 which was negative for ischemia 08/16/2024 Patient examined this morning at the bedside. Patient remains in atrial fibrillation with heart rate in the 80s90s. He is currently on IV Cardizem at 10 mg an hour. Patient without complaints of chest pain or pressure. He denies shortness of breath. Echocardiogram completed revealing ejection fraction 55 to 60%, no obvious regional wall motion abnormalities, mild MR, mild TR. 08/17/2024 Patient examined this morning at the bedside. Patient currently denies chest pain or pressure. He denies shortness of breath. Telemetry reveals atrial fi brillation with a heart rate around 100. PHYSICAL EXAM: VITAL SIGNS: Reviewed. GENERAL: Well-developed in no acute distress. HEENT: Head is normocephalic. Pupils are equal, round. Sclerae anicteric. Mucous membranes of the mouth are moist. Neck supple. No JVD or thyromegaly LUNGS: Respirations even and unlabored. Lungs essentially clear to auscultation bilaterally. HEART: Irregular rate and rhythm. S1 and S2 heard. ABDOMEN: Soft. Nondistended. Nontender. EXTREMITIES: Normal range of motion. No clubbing or cyanosis. Peripheral pulses intact. No lower extremity edema NEUROLOGIC: Awake and alert. Oriented x 3. ASSESSMENT: Shortness of breath and palpitations Paroxysmal atrial fibrillation with RVR Thrombocytopenia secondary to ITP, receiving Rituxan infusions outpatient Obesity: BMI 30.3 PLAN: Continue flecainide 100 mg twice a day and metoprolol succinate 100 mg daily Case discussed with hematology yesterday who is okay with beginning anticoagulation as patient's platelets are greater than 50. Patient placed on Eliquis 5 mg twice a day Will consider outpatient cardioversion if patient remains in atrial fibrillation now that he has been placed on anticoagulation Patient is stable for discharge home today from a cardiac standpoint Patient to follow-up postdischarge in the office with Dr. Olsen We will sign off. Please reconsult if needed. Nurse practitioner note has been reviewed by physician. Signing provider agrees with the documented findings, assessment, and plan of care documented by PRECISION HONING MACHINE OPERATOR as a scribe. Objective - Vital Signs Vital signs: Vital Signs Temp 98.4 F 08/16/24 20:00 Pulse 91 08/17/24 08:00 Resp 16 08/17/24 08:00 BP 109/71 08/17/24 08:00 Pulse Ox 96 08/17/24 08:00 FiO2 Intake & Output 08/16/24 08/17/24 08/17/24 18:59 06:59 18:59 Intake Total 1979 240 240 Balance 1979 240 240 Weight 107.5 kg Intake: Oral 1979 240 240 Other: Voiding Method Toilet Toilet Toilet # Voids 4 1 - Labs CBC & Chem 7: 08/16/24 06:27 08/14/24 14:26
[2024-08-17 11:20] LABS: Basophils % (A) 0.8 %; Eosinophils % (A) 0.5 %; HCT 45.4 % (39.6-50.0); HGB 16.3 g/dL (13.0-17.0); Lymphocytes # (A) 1.75 10*3/uL (0.90-5.00); Lymphocytes % (A) 22.7 %; MCH 31.3 pg (27.0-32.0); MCHC 35.9 g/dL (32.0-37.0); MCV 87.3 fL (80.0-97.0); Mean Platelet Volume 10.5 fL (9.5-12.2); Monocytes # (A) 0.58 10*3/uL (0.20-1.00); Monocytes % (A) 7.5 %; Neutrophils # (A) 4.97 10*3/uL (1.80-7.70); Neutrophils % (A) 64.4 %; RDW 13.2 % (11.5-14.5); WBC 7.72 10*3/uL (4.50-10.00)
[2024-08-17 11:21] LABS: Basophils # (A) 0.06 10*3/uL (0.00-0.10); Eosinophils # (A) 0.04 10*3/uL (0.04-0.35)
--- NOTE | 2024-08-17 11:54 | PN ---
PROGRESS NOTE CHIEF COMPLAINT: Recurrent atrial fibrillation with RVR. HISTORY OF PRESENT ILLNESS: This gentleman continues to be in atrial fibrillation. He is still little bit short of breath. He has had no chest pain. PHYSICAL EXAMINATION: CHEST: Clear. CARDIAC: Reveals atrial fibrillation with a rate of around 100. ABDOMEN: Soft, nontender. IMPRESSION: 1. Atrial fibrillation with RVR. 2. Congestive heart failure. 3. Thrombocytopenia. PLAN: No change in program at this time and await further recommendations from Cardiology including possibility of cardioversion. He has also been seen by Hematology. MMODL / IJN: [id number] /
[2024-08-17 12:11] LABS: Platelet Count 74 10*3/uL (140-440)
[2024-08-17 12:13] LABS: Large Platelets Present
[2024-08-17 12:14] LABS: RBC Morphology Normal
--- NOTE | 2024-08-17 15:29 | P.PN ---
Subjective Progress Note Date: 08/17/24 Principal diagnosis: ITP, a-fib In follow-up today patient continues on cardiac medications, he is not symptomatic from atrial fibrillation. He denies any shortness of breath, cough, he denies any bleeding. Objective - Vital Signs Vital signs: Vital Signs Temp 98.4 F 08/16/24 20:00 Pulse 100 08/17/24 12:00 Resp 16 08/17/24 12:00 BP 105/73 08/17/24 12:00 Pulse Ox 96 08/17/24 12:00 FiO2 Intake & Output 08/16/24 08/17/24 08/17/24 18:59 06:59 18:59 Intake Total 1979 240 480 Balance 1979 240 480 Weight 107.5 kg Intake: Oral 1979 240 480 Other: Voiding Method Toilet Toilet Toilet # Voids 4 1 - Constitutional General appearance: Present: average body habitus, cooperative, no acute distress - EENT Eyes: Present: anicteric sclerae, EOMI ENT: Present: hearing grossly normal - Respiratory Details: resp unlabored - Cardiovascular Details: skin warm,well perfused - Peripheral edema leg Peripheral Edema: bilateral: None - Integumentary Integumentary Comment(s): no rash or petechiae Integumentary: Present: normal - Neurologic Neurologic: Present: CNII-XII intact - Musculoskeletal Musculoskeletal: Present: strength equal bilaterally - Psychiatric Psychiatric: Present: A&O x's 3, appropriate affect, intact judgment & insight - Labs CBC & Chem 7: 08/17/24 09:57 08/14/24 14:26 Labs: Abnormal Lab Results - Last 24 Hours (Table) 08/17/24 Range/Units 09:57 Plt Count 74 L (140-440) 10*3/uL Immature Gran # 0.32 H (0.00-0.04) 10*3/uL Assessment and Plan (1) Atrial fibrillation with RVR Current Visit: Yes Status: Acute Priority: High Code(s): I48.91 - UNSPECIFIED ATRIAL FIBRILLATION SNOMED Code(s): 743294274680196 (2) Thrombocytopenia Current Visit: Yes Status: Chronic Priority: Medium Code(s): D69.6 - THROMBOCYTOPENIA, UNSPECIFIED SNOMED Code(s): 887656840 Plan: Atrial fibrillation with RVR - Patient has history of the same, as stated in consult - Cardiology has seen and examined the patient, prescribed medications for treatment of the same -Patient is okay for anticoagulation as long as platelets are above 50,000. Patient has platelet monitoring weekly with Hematology. Plt 74,000 today ITP -Diagnosed 1 month ago -Steroid refractory - Status post 2 doses of monoclonal antibody with best platelet count he has had in quite some time, 69,000 on admit, 74,000 today. -From Hematology standpoint, platelets greater than 50,000 are okay for anticoagulation. If plt fall below 50,000 anticoagulation will need to be held. -Pt will need to be continued on treatment for ITP, as soon as patient is discharged from the hospital. Appt for next Wednesday in place Doctor attests: I performed a history and physical examination of this patient, developed impression and plan of care. Discussed with dictator. I agree with dictators note, documented as a scribe.
[2024-08-17 15:51] VITALS: BP 118/79; PULSE 93
--- NOTE | 2024-08-18 02:21 | DS ---
DISCHARGE SUMMARY CHIEF COMPLAINT: Shortness of breath and palpitation. HISTORY OF PRESENT ILLNESS AND PHYSICAL EXAMINATION: Details of this man's history and physical can be found in the initial workup. LABORATORY STUDIES: While he was in the hospital, he had laboratory studies, details of which can be found in the laboratory section of his chart. COURSE IN THE HOSPITAL: After admission, he was placed on bedrest, started on telemetry, and seen by Cardiology. His BNP was elevated. Heart rate was slow, but he has remained in atrial fibrillation with only occasional breaks and normal sinus rhythm. Cardiology felt that he was stable enough to be discharged, and it was felt that he could he could go home on the . He will go back on apixaban since his platelet count is above 50,000. He will be on flecainide and an increased dose of metoprolol. He will be seen in the office in several days. FINAL DIAGNOSES: 1. Recurrent atrial fibrillation with rapid ventricular response. 2. Congestive heart failure. 3. Thrombocytopenia. OPERATIONS: None. CONSULTATIONS: Cardiology. DEVANG / RAVEN: [id number] /
== END 2024-08-17 17:13 | disposition home or self-care (01) | DRG 309 ==
LOC: EC 12:50 → 3SCARD 15:26 → OBSVTOIN 08-16 08:32
PROVIDERS: ADMIT Family Medicine; ATTEND Family Medicine
PROC: 3E0 Administration, Physiological Systems and Anatomical Regions, Introduction (ICD-10-PCS; principal; 2024-08-16)
DX: I48.0 Paroxysmal atrial fibrillation (principal); D69.3 Immune thrombocytopenic purpura; I11.0 Hypertensive heart disease with heart failure; J44.9 Chronic obstructive pulmonary disease, unspecified; E66.9 Obesity, unspecified; I08.3 Combined rheumatic disorders of mitral, aortic and tricuspid valves; I50.9 Heart failure, unspecified; Z68.30 Body mass index [BMI] 30.0-30.9, adult; Z79.899 Other long term (current) drug therapy; Z85.048 Personal history of other malignant neoplasm of rectum, rectosigmoid junction, and anus; Z90.49 Acquired absence of other specified parts of digestive tract
CPT/HCPCS: 36415; 71046; 80053; 83735; 83880; 84439; 84443; 84484; 85025; 85027; 85610; 85730; 93005; 93306; 96365; 96366; 99291

== ENCOUNTER 2024-10-03 08:44 | Day surgery (SDC) | payer MEDICARE, OTHER ==
[2024-10-03] MEDS ORDERED: SODIUM CHLORIDE 0.9% 500 ML IV SCH (09:00)
[2024-10-03] MEDS: IV FLUID CONTINUATION 1,000 ML IV ONE (09:08)
[2024-10-03] MEDS: SODIUM CHLORIDE 0.9% 500 ML 500 ML IV ONE (09:24)
[2024-10-03 10:06] LABS: African American GFR (CKD) >90 (>60 ml/min/1.73 sqM); Anion Gap 8 mmol/L; Blood Urea Nitrogen 16 mg/dL (9-20); Calcium 9.1 mg/dL (8.4-10.2); Carbon Dioxide 24 mmol/L (22-30); Chloride 110 mmol/L (98-107); Glucose 96 mg/dL (74-99); Non-African American GFR(CKD) >90 (>60 ml/min/1.73 sqM); Potassium 4.1 mmol/L (3.5-5.1); Sodium 142 mmol/L (137-145)
[2024-10-03] MEDS: BENZOCAINE SPRAY 1 EACH MUCOUS MEM STA (10:09)
[2024-10-03] MEDS ORDERED: LIDOCAINE 1% INJ 10MG/ML (20 ML MDV) ONE (10:13)
[2024-10-03] MEDS ORDERED: PROPOFOL 10 MG/ML 20 ML VIAL IV ONE (10:13)
[2024-10-03] MEDS ORDERED: SODIUM CHLORIDE 0.9% 1,000 ML IV SCH (10:30)
[2024-10-03 10:34] VITALS: TEMP 97
--- NOTE | 2024-10-03 11:11 | ECHOS ---
STRESS ECHOCARDIOGRAM PROCEDURE: Transesophageal echo. INDICATION: Atrial flutter to rule out intracardiac thrombus. PROCEDURE NOTE: After obtaining informed consent, transesophageal echocardiogram was performed in left lateral position using an Omniplane probe. Local and IV sedation were obtained by the technology recruiter. The patient tolerated the procedure well without any obvious immediate complications. FINDINGS: 1. There is no intracardiac thrombus within the left atrial appendage, left atrium, right atrium, right ventricle, or left ventricle. 2. Left ventricle has normal size and systolic function. 3. Mitral valve shows moderate central mitral regurgitation. 4. There is mild tricuspid regurgitation. 5. Aortic valve is free of stenosis or regurgitation. There is biatrial enlargement. Aortic root measures within normal limits. There is no evidence of [id number] shunt by color-flow Doppler or [id number] shunt by agitated saline contrast study. CONCLUSION: 1. No intracardiac thrombus. 2. Moderate mitral regurgitation. 3. Normal LV function. PLAN: The patient will undergo cardioversion. MMODL / IJN: [id number] /
--- NOTE | 2024-10-03 11:11 | ECHOS ---
STRESS ECHOCARDIOGRAM STUDY PERFORMED: Cardioversion note. PROCEDURE NOTE: After obtaining informed consent, electrical cardioversion was performed using synchronized DC current. The patient converted to sinus rhythm following a single shock. He is on Eliquis and is adequately anticoagulated and an intracardiac thrombus was ruled out with a REGAN. The patient will be discharged home on flecainide and Eliquis and will hold the metoprolol. MMADIN / JAIMEEN: [id number] /
[2024-10-03 11:36] VITALS: BP 117/66; PULSE 59; RESP 16
== END 2024-10-03 11:45 | disposition home or self-care (01) ==
LOC: OR 08:44
PROVIDERS: ATTEND Internal Medicine Cardiovascular Disease
DX: I08.1 Rheumatic disorders of both mitral and tricuspid valves (principal); I48.92 Unspecified atrial flutter; I10 Essential (primary) hypertension; Z79.01 Long term (current) use of anticoagulants; Z79.899 Other long term (current) drug therapy
CPT/HCPCS: 93312; 93320; 93325; 92960; 80048; J2003; J2704